=== PATIENT | male | born 1960 | race Caucasian/White ===

== ENCOUNTER 2018-11-23 18:23 | Inpatient (IN) | payer OTHER ==
[2018-11-23] MEDS ORDERED: THIAMINE 100 MG/ML 2 ML VIAL IM STA (18:48)
[2018-11-23] MEDS ORDERED: SODIUM CHLORIDE 0.9% 500 ML 500 ML IV STA (18:48)
[2018-11-23] MEDS ORDERED: DIAZEPAM 5 MG/ML 2 ML INJ IVP STA (18:48)
[2018-11-23] MEDS ORDERED: SODIUM CHLORIDE 0.9% 1,000 ML IV STA ×2 (18:48)
[2018-11-23] MEDS ORDERED: LORazepam 2 MG/ML INJ IV STA (18:48)
--- NOTE | 2018-11-23 19:07 | ED ---
Alcohol HPI - General Chief Complaint: Syncope Stated Complaint: Seizure Time Seen by Provider: 11/23/18 18:26 Source: patient, EMS, RN notes reviewed, old records reviewed Mode of arrival: EMS Limitations: no limitations - History of Present Illness Initial Comments: This is a 57-year-old male the ER for evaluation. Patient presents today for evaluation regards to seizure. Patient does admit to alcoholism. Patient has alcohol withdrawal seizure. Loss of bladder. Does have history of DTs before from alcoholism. MD Complaint: alcohol intoxication, alcohol withdrawal Last Drink: just [employer] (Seizure) -: days(s) Previous Visits for Alcohol Intoxication?: Yes Recent Trauma: No Associated Symptoms: nausea, seizure, diaphoresis, tremors Treatments Prior to Arrival: none Chronic Alcohol Use: Yes - Related Data Home Medications Medication Instructions Recorded Confirmed No Known Home Medications 11/23/18 11/23/18 Allergies Allergy/AdvReac Type Severity Reaction Status Date / Time No Known Allergies Allergy Verified 11/23/18 18:43 Review of Systems ROS Statement: Those systems with pertinent positive or pertinent negative responses have been documented in the HPI. ROS Other: All systems not noted in ROS Statement are negative. Past Medical History Additional Past Medical History / Comment(s): ETOH abuse History of Any Multi-Drug Resistant Organisms: None Reported Past Surgical History: Hernia Repair Past Psychological History: No Psychological Hx Reported Smoking Status: Current every day smoker Past Alcohol Use History: Abuse, Daily Past Drug Use History: None Reported General Exam Limitations: altered mental status General appearance: alert, anxious Head exam: Present: atraumatic, normocephalic, normal inspection Eye exam: Present: normal appearance, PERRL, EOMI. Absent: scleral icterus, conjunctival injection, periorbital swelling ENT exam: Present: normal exam, mucous membranes moist Neck exam: Present: normal inspection. Absent: tenderness, meningismus, lymphadenopathy Respiratory exam: Present: normal lung sounds bilaterally. Absent: respiratory distress, wheezes, rales, rhonchi, stridor Cardiovascular Exam: Present: normal rhythm, tachycardia, normal heart sounds. Absent: systolic murmur, diastolic murmur, rubs, gallop, clicks GI/Abdominal exam: Present: soft, normal bowel sounds. Absent: distended, tenderness, guarding, rebound, rigid Extremities exam: Present: normal inspection, full ROM, normal capillary refill. Absent: tenderness, pedal edema, joint swelling, calf tenderness Back exam: Present: normal inspection Neurological exam: Present: alert, oriented X3, CN II-XII intact Psychiatric exam: Present: normal affect, normal mood Skin exam: Present: warm, dry, intact, normal color. Absent: rash Course Vital Signs 11/23/18 11/23/18 18:32 19:25 Temperature 98.9 F Pulse Rate 104 H 82 Respiratory 18 19 Rate Blood Pressure 130/81 116/87 O2 Sat by Pulse 95 97 Oximetry - Reevaluation(s) Reevaluation #1: 11/23/18 20:26 Medical record is reviewed and noncontributory Reevaluation #2: 11/23/18 20:26 Patient is improved on benzodiazepines Medical Decision Making - Medical Decision Making 57 male the ER for evaluation. Patient is ER for evaluation, patient was seizure secondary to alcohol withdrawal. Patient will be admitted for monitoring of alcohol withdrawal, DTs and seizure - Lab Data Result diagrams: 11/23/18 18:30 11/23/18 18:30 Lab Results 11/23/18 11/23/18 11/23/18 Range/Units 18:30 18:30 18:30 WBC 8.9 (3.8-10.6) k/uL RBC 4.29 L (4.30-5.90) m/uL Hgb 14.8 (13.0-17.5) gm/dL Hct 44.9 (39.0-53.0) % MCV 104.6 H (80.0-100.0) fL MCH 34.4 (25.0-35.0) pg MCHC 32.9 (31.0-37.0) g/dL RDW 14.1 (11.5-15.5) % Plt Count 66 L (150-450) k/uL Neutrophils % 77 % Lymphocytes % 12 % Monocytes % 9 % Eosinophils % 1 % Basophils % 0 % Neutrophils # 6.8 (1.3-7.7) k/uL Lymphocytes # 1.0 (1.0-4.8) k/uL Monocytes # 0.8 (0-1.0) k/uL Eosinophils # 0.1 (0-0.7) k/uL Basophils # 0.0 (0-0.2) k/uL Manual Slide Review Performed Macrocytosis Slight PT 11.5 (9.0-12.0) sec INR 1.1 (<1.2) Sodium 139 (137-145) mmol/L Potassium 3.1 L (3.5-5.1) mmol/L Chloride 101 (98-107) mmol/L Carbon Dioxide 18 L (22-30) mmol/L Anion Gap 20 mmol/L BUN 15 (9-20) mg/dL Creatinine 0.98 (0.66-1.25) mg/dL Est GFR (CKD-EPI)AfAm >90 (>60 ml/min/1.73 sqM) Est GFR (CKD-EPI)NonAf 86 (>60 ml/min/1.73 sqM) Glucose 182 H (74-99) mg/dL Calcium 9.1 (8.4-10.2) mg/dL Phosphorus 2.7 (2.5-4.5) mg/dL Magnesium 1.5 L (1.6-2.3) mg/dL Total Bilirubin 3.2 H (0.2-1.3) mg/dL AST 226 H (17-59) U/L ALT 86 H (21-72) U/L Alkaline Phosphatase 124 (38-126) U/L Total Protein 6.4 (6.3-8.2) g/dL Albumin 3.9 (3.5-5.0) g/dL Lipase 88 (23-300) U/L Serum Alcohol <10 mg/dL - EKG Data -: EKG Interpreted by Me (EKG shows sinus tachycardia rate of 109, OK 152, QRS 82, QTc 495) Disposition Clinical Impression: Alcohol withdrawal, Delirium tremens, Seizure Disposition: ADMITTED IP TO THIS HOSP Condition: Fair Is patient prescribed a controlled substance at d/c from ED?: No Referrals: None,Stated [Primary Care Provider] - 1-2 days
[2018-11-23 19:11] LABS: Basophils % (A) 0 %; Eosinophils # (A) 0.1 k/uL (0-0.7); Eosinophils % (A) 1 %; HCT 44.9 % (39.0-53.0); HGB 14.8 gm/dL (13.0-17.5); Lymphocytes % (A) 12 %; MCH 34.4 pg (25.0-35.0); MCHC 32.9 g/dL (31.0-37.0); MCV 104.6 fL (80.0-100.0); Macrocytosis Slight; Monocytes # (A) 0.8 k/uL (0-1.0); Monocytes % (A) 9 %; Neutrophils # (A) 6.8 k/uL (1.3-7.7); Neutrophils % (A) 77 %; RBC 4.29 m/uL (4.30-5.90); RDW 14.1 % (11.5-15.5); WBC 8.9 k/uL (3.8-10.6)
[2018-11-23 19:18] LABS: INR 1.1 (<1.2); Prothrombin Time 11.5 sec (9.0-12.0)
[2018-11-23 19:31] LABS: ALT 86 U/L (21-72); Albumin 3.9 g/dL (3.5-5.0); Alcohol <10 mg/dL; Alkaline Phosphatase 124 U/L (38-126); Anion Gap 20 mmol/L; Blood Urea Nitrogen 15 mg/dL (9-20); Calcium 9.1 mg/dL (8.4-10.2); Carbon Dioxide 18 mmol/L (22-30); Chloride 101 mmol/L (98-107); Glucose 182 mg/dL (74-99); Lipase 88 U/L (23-300); Magnesium 1.5 mg/dL (1.6-2.3); Phosphorus 2.7 mg/dL (2.5-4.5); Potassium 3.1 mmol/L (3.5-5.1); Sodium 139 mmol/L (137-145); Total Bilirubin 3.2 mg/dL (0.2-1.3); Total Protein 6.4 g/dL (6.3-8.2)
[2018-11-23 19:46] LABS: Platelet Count 66 k/uL (150-450)
[2018-11-23] MEDS ORDERED: traMADol 50 MG TAB PO PRN (20:17)
[2018-11-23 20:30] LABS: AST 226 U/L (17-59)
--- NOTE | 2018-11-23 20:49 | HP ---
HISTORY AND PHYSICAL CHIEF COMPLAINT: Alcohol withdrawal. HISTORY OF PRESENT ILLNESS: This 57-year-old gentleman with a past medical history of significant alcoholism, history of hernia repair, history of nicotine dependence, not being followed by a primary physician in the outpatient setting, was living with his mother apparently. The family apparently took the patient to [facility] Emergency Room while the patient was withdrawing because of concerns about DTs. Currently the patient is confused, unable to give a coherent history. Most of the history is taken from my discussion with staff as well as review of the chart and discussion with the ER physician. PAST MEDICAL HISTORY: 1. ETOH abuse. 2. History of nicotine dependence. 3. History of hernia repair. HOME MEDICATIONS: None. ALLERGIES: NONE. Family history, social history, review of systems could not be taken at length. Otherwise, smoking and alcohol as mentioned earlier. PHYSICAL EXAMINATION: The patient is stuporous. Pulse 104, blood pressure 130/81, respiration 18, temperature 98.9, pulse ox 95% on room air. HEENT: Conjunctivae normal. Oral mucosa moist. NECK: No jugular venous distention. No carotid bruit. No lymph node enlargement. CARDIOVASCULAR SYSTEM: S1, S2 muffled. RESPIRATORY SYSTEM: Breath sounds diminished at the bases. Bilateral scattered rhonchi and crackles. ABDOMEN: Soft, non-tender. LEGS: No edema. No swelling. NERVOUS SYSTEM: Higher functions as mentioned earlier. Moves all 4 limbs. Mild diffuse weakness and tremors also present. LABS: WBC 8.9, hemoglobin 14.8. Sodium 139, potassium 3.1, magnesium 1.5. Total bilirubin is 3.2, AST is 2, ALT is 86. Alcohol less than 10. ASSESSMENT: 1. Acute delirium tremens with acute metabolic encephalopathy secondary to delirium tremens. 2. Alcohol withdrawal syndrome. 3. Hypomagnesemia. 4. Hypokalemia. 5. Increased bilirubin and AST, ALT, with alcoholic hepatitis. 6. Thrombocytopenia. 7. Increased mean corpuscular volume. 8. History of hernia repair. 9. History of nicotine dependence. RECOMMENDATIONS AND DISCUSSION: In this 57-year-old gentleman who presented with multiple complex medical issues, we will monitor the patient closely, continue the current management. Symptomatic treatment. [facility] protocol. Multivitamins. I would also recommend oncology social worker and case management evaluation for possible rehab. The prognosis is guarded because of multiple complex medical issues. See orders for further details. Further recommendations to follow. Will repeat potassium, magnesium supplementation and continue to monitor. Further recommendations to follow. Also recommend that the patient follow up with a primary physician closely after discharge. Discussed with the family, who understands and agrees. MELL / BRENDA: [id number] /
[2018-11-23] MEDS ORDERED: NICOTINE 14MG/24HR PATCH TRANSDERM STA (20:53)
[2018-11-23] MEDS ORDERED: HEPARIN SODIUM,PORCINE 5,000 UNIT/ML 1 ML VIAL SQ STA (20:54)
[2018-11-23] MEDS: MAGNESIUM SULFATE-D5W PMX 1 GM in DEXTROSE/WATER 1 100ML.BAG IVPB SCH (20:58)
[2018-11-23] MEDS ORDERED: TEMAZEPAM 15 MG CAP PO PRN (21:00)
[2018-11-23] MEDS: POTASSIUM CHLORIDE 10 MEQ in WATER FOR INJECTION 1 100ML.BAG IVPB SCH ×2 (22:18→23:37)
[2018-11-24] MEDS: POTASSIUM CHLORIDE 10 MEQ in WATER FOR INJECTION 1 100ML.BAG IVPB SCH ×3 (00:44→01:47)
[2018-11-24] MEDS: LORazepam 2 MG/ML INJ IV PRN ×10 (01:37→22:23)
[2018-11-24] MEDS: MAGNESIUM SULFATE-D5W PMX 1 GM in DEXTROSE/WATER 1 100ML.BAG IVPB SCH ×2 (02:41→23:13)
[2018-11-24 08:08] LABS: Basophils % (A) 0 %; Eosinophils # (A) 0.1 k/uL (0-0.7); Eosinophils % (A) 1 %; HCT 38.9 % (39.0-53.0); HGB 12.8 gm/dL (13.0-17.5); Lymphocytes # (A) 1.2 k/uL (1.0-4.8); Lymphocytes % (A) 15 %; MCH 34.4 pg (25.0-35.0); MCHC 32.8 g/dL (31.0-37.0); MCV 104.9 fL (80.0-100.0); Macrocytosis Slight; Mean Platelet Volume 8.7; Monocytes # (A) 0.8 k/uL (0-1.0); Monocytes % (A) 9 %; Neutrophils # (A) 5.9 k/uL (1.3-7.7); Neutrophils % (A) 73 %; RBC 3.71 m/uL (4.30-5.90); WBC 8.1 k/uL (3.8-10.6)
[2018-11-24 08:15] LABS: Platelet Count 55 k/uL (150-450)
[2018-11-24 08:18] LABS: Anion Gap 5 mmol/L; Blood Urea Nitrogen 10 mg/dL (9-20); Calcium 7.8 mg/dL (8.4-10.2); Carbon Dioxide 25 mmol/L (22-30); Chloride 106 mmol/L (98-107); Glucose 115 mg/dL (74-99); Magnesium 1.8 mg/dL (1.6-2.3); Potassium 3.3 mmol/L (3.5-5.1); Sodium 136 mmol/L (137-145)
[2018-11-24] MEDS: PANTOPRAZOLE 40 MG TABLET PO SCH (08:24)
[2018-11-24] MEDS: HEPARIN SODIUM,PORCINE 5,000 UNIT/ML 1 ML VIAL SQ SCH ×2 (08:24→22:19)
[2018-11-24] MEDS: THIAMINE 100 MG TAB PO SCH ×2 (12:24→17:07)
[2018-11-24] MEDS ORDERED: Potassium Replacement Protocol 1 EACH MISC MISCELLANE PRN ×3 (12:48→13:06)
[2018-11-24 12:56] LABS: Appearance,Urine Clear (Clear); Bilirubin,Urine Negative (Negative); Blood,Urine Negative (Negative); Color,Urine Yellow; Glucose,Urine (UA) Negative (Negative); Ketones,Urine Negative (Negative); Leukocyte Esterase,Urine Negative (Negative); Nitrite,Urine Negative (Negative); PH, Urine 7.5 (5.0-8.0); Protein,Urine Negative (Negative); Specific Gravity,Urine 1.007 (1.001-1.035)
[2018-11-24] MEDS ORDERED: Magnesium Replacement Protocol 1 EACH MISC MISCELLANE PRN (13:05)
[2018-11-24 13:15] LABS: Amphetamine Screen,Urine Not Detected (NotDetected); Barbiturate Screen,Urine Not Detected (NotDetected); Benzodiazepines Screen,Urine Detected (NotDetected); Cocaine Screen,Urine Not Detected (NotDetected); Methadone Screen, Urine Not Detected (NotDetected); Opiate Screen,Urine Not Detected (NotDetected); Oxycodone Screen, Urine Not Detected (NotDetected); Phencyclidine Screen,Urine Not Detected (NotDetected); Tricyclic Antidepressant,Urine Not Detected (NotDetected); Urn Cannabinoid Scrn Not Detected (NotDetected)
[2018-11-24] MEDS: POTASSIUM CHLORIDE ER 20 MEQ TAB.ER PO SCH ×2 (13:19→13:20)
--- NOTE | 2018-11-24 14:43 | PN ---
PROGRESS NOTE DATE OF SERVICE: 11/24/2018 This is a 57-year-old gentleman admitted with acute delirium tremens, alcohol withdrawn, is extremely shaky at this time. Patient continues to be confused. No chest pain. No palpitations. No fever. PHYSICAL EXAM: Alert and oriented x3. Pulse 71, blood pressure 140/84, respiration 20, temperature 98.2, pulse ox 97% on room air. HEENT: Conjunctivae normal. CARDIOVASCULAR SYSTEM: S1, S2, muffled. RESPIRATION: Breath sound diminished at the bases, a few scattered rhonchi. ABDOMEN: Soft. NERVOUS SYSTEM: Diffusely weak and tremors. LABS: WBC is 8.1, hemoglobin is 12.8, sodium 130, potassium 3.3 and magnesium 1.5. ASSESSMENT: 1. Acute delirium tremens with acute metabolic encephalopathy secondary to delirium tremens. 2. Alcohol withdrawal syndrome. 3. Hypomagnesemia. 4. Hypokalemia. 5. Increased bilirubin with AST, ALT with alcoholic hepatitis. 6. Thrombocytopenia. 7. Increased MCV. 8. History of hernia repair. 9. History nicotine dependence. RECOMMENDATION: Recommend to continue current management and symptomatic treatment. Continue with the CIWA protocol, Ativan. I would also recommend protocols, Mag and potassium also. Further recommendations to follow. MMODL / IJN: [id number] / MTDD
[2018-11-24] MEDS ORDERED: THIAMINE 100 MG TAB PO SCH (17:00)
[2018-11-24] MEDS: NICOTINE 14MG/24HR PATCH TRANSDERM SCH (18:29)
[2018-11-24] MEDS ORDERED: LORazepam 2 MG/ML INJ IV STA (19:05)
[2018-11-24] MEDS ORDERED: NICOTINE 14MG/24HR PATCH TRANSDERM SCH (21:00)
[2018-11-24 21:59] LABS: Glucose,Whole Blood 116 mg/dL (75-99)
[2018-11-24] MEDS ORDERED: LORazepam Vial 25 MG in DEXTROSE 5% IN WATER 238 ML IV SCH ×2 (22:45)
[2018-11-24] MEDS ORDERED: POTASSIUM CHLORIDE 10 MEQ in WATER FOR INJECTION 1 100ML.BAG IVPB SCH (23:00)
[2018-11-24] MEDS: SODIUM CHLORIDE 0.9% 1,000 ML IV SCH (23:12)
[2018-11-25] MEDS ORDERED: DIAZEPAM 5 MG/ML 2 ML INJ IVP STA (00:21)
[2018-11-25] MEDS: MAGNESIUM SULFATE-D5W PMX 1 GM in DEXTROSE/WATER 1 100ML.BAG IVPB SCH ×3 (00:24→06:30)
[2018-11-25] MEDS ORDERED: DIAZEPAM 5 MG/ML (10 ML MDV) IVP STA (00:25)
[2018-11-25] MEDS ORDERED: HALOPERIDOL LACTATE 5 MG/ML 1 ML VIAL IVP STA (01:03)
[2018-11-25 04:53] LABS: Basophils % (A) 0 %; Eosinophils # (A) 0.1 k/uL (0-0.7); Eosinophils % (A) 1 %; HGB 14.2 gm/dL (13.0-17.5); Lymphocytes # (A) 0.8 k/uL (1.0-4.8); Lymphocytes % (A) 10 %; MCHC 32.2 g/dL (31.0-37.0); MCV 105.6 fL (80.0-100.0); Macrocytosis Moderate; Mean Platelet Volume 9.4; Monocytes # (A) 0.7 k/uL (0-1.0); Monocytes % (A) 10 %; Neutrophils # (A) 5.9 k/uL (1.3-7.7); Neutrophils % (A) 78 %; RBC 4.17 m/uL (4.30-5.90); RDW 13.8 % (11.5-15.5); WBC 7.6 k/uL (3.8-10.6)
[2018-11-25 04:56] LABS: Platelet Count 53 k/uL (150-450)
[2018-11-25 05:03] LABS: ALT 108 U/L (21-72); AST 229 U/L (17-59); Albumin 3.4 g/dL (3.5-5.0); Alkaline Phosphatase 127 U/L (38-126); Anion Gap 8 mmol/L; Blood Urea Nitrogen 6 mg/dL (9-20); Calcium 8.5 mg/dL (8.4-10.2); Carbon Dioxide 26 mmol/L (22-30); Chloride 108 mmol/L (98-107); Glucose 94 mg/dL (74-99); Magnesium 1.9 mg/dL (1.6-2.3); Potassium 3.3 mmol/L (3.5-5.1); Sodium 142 mmol/L (137-145); Total Bilirubin 2.2 mg/dL (0.2-1.3)
[2018-11-25] MEDS: SODIUM CHLORIDE 0.9% 1,000 ML IV SCH (05:14)
[2018-11-25] MEDS: POTASSIUM CHLORIDE 10 MEQ in WATER FOR INJECTION 1 100ML.BAG IVPB SCH ×4 (05:42→09:08)
[2018-11-25] MEDS: LORazepam 2 MG/ML INJ IV PRN ×5 (09:08→21:16)
[2018-11-25] MEDS: DEXTROSE IV SCH ×6 (09:26→22:13)
[2018-11-25] MEDS: NACL IV SCH ×6 (09:26→22:13)
[2018-11-25] MEDS: THIAMINE IV SCH ×6 (09:26→22:13)
--- NOTE | 2018-11-25 10:39 | XR ---
EXAMINATION TYPE: XR chest 1V portable DATE OF EXAM: 11/25/2018 COMPARISON: NONE HISTORY: Pneumonia TECHNIQUE: Single frontal view of the chest is obtained. FINDINGS: Patient is rotated. There are cardiac leads. There is no focal air space opacity, pleural e ffusion, or pneumothorax seen. The cardiac silhouette size is within normal limits. The osseous st ructures are intact. IMPRESSION: No acute process.
[2018-11-25] MEDS: HALOPERIDOL LACTATE 5 MG/ML 1 ML VIAL IVP PRN ×2 (11:13→22:06)
--- NOTE | 2018-11-25 11:30 | CONS ---
CONSULTATION PULMONARY/CRITICAL CARE CONSULTATION. REASON FOR CONSULTATION: Alcohol withdrawal syndrome/delirium tremens/agitation. DATE OF SERVICE: November 25, 2018. HISTORY: This is a 57-year-old patient who was evaluated in the emergency room on November 23 for possible seizure disorder and/or alcohol withdrawal syndrome. The patient was thought to have alcohol withdrawal seizures. The patient apparently does have a history of delirium tremens in the past from alcohol intoxication. He drinks apparently a bottle of vodka a day. Anyway, the patient was thought to have had a seizure. No seizure while he has been here in the hospital as far as I can tell. Anyway, the patient was apparently on the floor, not responding to intermittent doses of Ativan via the CIWA scale. For that reason, the patient was transferred down to the unit. I was not notified of the transfer before the patient got here. I was notified after the patient arrived to the ICU. For some reason, someone started him on Ativan drip. This is not right for two reasons, one is the patient might have precipitation of the Ativan within the tubing. In addition, because the preservative Ativan is propylene glycol, propylene glycol intoxication with metabolic acidosis, lactic acidemia and osmolar gap is known to occur even in short term use of the IV Ativan via drip. Hence, the Ativan drip will be discontinued in favor of IV pushes of Ativan. In addition, Haldol will also be added to the regimen. The patient apparently also received some Valium and did not respond well to that. No additional history is documented in the medical record. HOME MEDICATIONS: Apparently none. ALLERGIES: None. PAST MEDICAL HISTORY: Only positive for alcohol abuse and possible alcoholic seizures in the past and/or delirium tremens in the past. PAST SURGICAL HISTORY: Hernia repair. SOCIAL HISTORY: Positive for current everyday tobacco use. Alcohol abuse as noted. No illicit drug use. Family and occupation history not known. The patient is not able to provide any additional history as he is quite agitated and confused. REVIEW OF SYSTEMS: Unremarkable. He may have had a seizure either prior to or in the ER. It is hard to note documentation. PHYSICAL EXAMINATION: Reviewed, temperature 98.4 heart rate respiratory rate 17, blood pressure 146/99, mean 114, room air saturation 94%. Appears quite agitated and confused. No active seizure activity. HEENT examination is grossly unremarkable. No supplemental oxygen noted. Neck is supple. Full range of motion. No adenopathy or thyromegaly. Neck veins are flat. Cardiovascular examination reveals regular rhythm and rate. Heart rate is anywhere between 80 to 105 beats per minute. S1, S2 normal. It is regular. No distinct murmur noted. Lungs reveal a few scattered rhonchi. No wheezes or crackles. Abdomen is soft. Bowel sounds are noted. Extremities are intact. No cyanosis, clubbing, or edema. Skin without rash. Neurologic examination is difficult to assess. He is very confused and disoriented. He is restrained. CURRENT LABORATORY DATA: Reviewed. White count 7.6, hemoglobin 14.2, hematocrit 44.0, platelet count 53,000. Sodium 142, potassium 3.3, chloride 108, CO2 is 26, anion gap is 8. BUN and creatinine were 6 and 0.57. Total bilirubin room is down to 2.2 from 3.2. AST is 229, ALT is 108. The alkaline phosphatases 127, albumin 3.4. Urine is clear. Drug screen is positive for benzodiazepines. No chest x-ray has been done. Will order one. EKG shows sinus tachycardia, no acute changes. MEDICATIONS: Reviewed. He is currently on D5 of 0.9 with thiamin at 150/hour. He is also getting Haldol and Ativan per my instructions. He has got a nicotine patch in place. He is getting potassium replacement. No additional medications are noted. ASSESSMENT: 1. Rule out alcoholic induced delirium tremens. 2. Rule out alcohol-induced seizures (rum fits). 3. History of chronic alcohol abuse. 4. History of chronic tobacco use/abuse. 5. Electrolyte service including hypokalemia. 6. Slight liver dysfunction secondary to alcohol abuse. PLAN: Ativan drip is discontinued because of concerns of precipitation of the medication and the tubing as well as propylene glycol intoxication. We will use Ativan IV push. Also, Haldol was added to the regimen. We will get a chest x-ray. Additional recommendations and suggestions forthcoming. We changed IV to D5 at 0.9 with thiamine. We will continue to follow. Prognosis is guarded. Should he develop temperature elevation, Tylenol will be used. We will follow. MMODL / IJN: [id number] /
[2018-11-25] MEDS ORDERED: LORazepam 2 MG/ML INJ IV PRN (12:00)
[2018-11-25] MEDS ORDERED: HALOPERIDOL LACTATE 5 MG/ML 1 ML VIAL IVP PRN (12:02)
[2018-11-25] MEDS: cloNIDine HCL 0.1 MG TAB SUBLINGUAL PRN ×2 (12:10→18:24)
--- NOTE | 2018-11-25 12:39 | PN ---
PROGRESS NOTE DATE OF SERVICE: 11/25/2018 This 57-year-old gentleman with a past medical history of multiple medical problems was admitted with acute delirium tremens. Last night, patient was combative, confused. The patient needed Ativan drip and transferred to ICU. Patient also necessitated restraints for patient safety as well as administration of medications. The patient is currently being maintained on anywhere between 2-5 mg Ativan p.r.n. and 4-8 mg of Haldol IV p.r.n. The patient is sedated but is moving his extremities minimally. Dr. Chavez is following the patient closely for ICU management. PAST MEDICAL HISTORY: Reviewed. REVIEW OF SYSTEMS: Could not be taken. CURRENT MEDICATIONS: The current medications are as follows: 1. Catapres 0.1 p.r.n. 2. Haldol p.r.n. 3. Ativan p.r.n. 4. Habitrol. 5. Saline. PHYSICAL EXAM: Patient is sedated, combative, restless. The pulse is 81, blood pressure 130/90, respiration 20, temperature 97 degrees, pulse ox 97% on room air. HEENT: Conjunctivae normal. NECK: No jugular venous distention. CARDIOVASCULAR: S1, S2. RESPIRATORY: Breath sounds diminished in the bases. No rhonchi. No crackles. ABDOMEN: Soft, nontender. No mass palpable. LEGS: No edema. NERVOUS SYSTEM: Patient is sedated. LABS: WBC 7.7 hemoglobin 14, platelets of 350. Sodium 140, potassium 3.3 and magnesium 1.9. Total bilirubin is 2.2, AST 229, and ALT is 108. positive drug screen. ASSESSMENT: 1. Acute delirium tremens with change in mental status acute metabolic encephalopathy. 2. Alcohol withdrawal syndrome. 3. Hypomagnesemia. 4. Hypokalemia. 5. Thrombocytopenia. 6. Increased bilirubin with AST, ALT with alcoholic hepatitis. 7. Increased MCV. 8. History of hernia repair. 9. History of nicotine dependence. RECOMMENDATIONS AND DISCUSSION: This 57-year-old gentleman who presented with multiple medical issues, at this time I recommend to continue current medications, continue symptomatic treatment. Continue with Ativan, Haldol as mentioned earlier. I would also recommend a clonidine and followup p.r.n. Repeat labs. DVT prophylaxis. Patient is not a candidate for heparin because of the severe thrombocytopenia which could be related to alcohol. We will continue to monitor. The prognosis guarded. Further recommendations to follow. Discussed with staff. MELL / CHIQUIN: [id number] / NIK
[2018-11-25] MEDS: 1: MVI, ADULT NO.4 WITH VIT K 10 ML, THIAMINE 100 MG, FOLIC ACID 1 MG in SODIUM CHLORIDE IV SCH ×8 (13:30→22:33)
[2018-11-25] MEDS: cloNIDine HCL 0.1 MG TAB PO SCH ×2 (16:35→22:28)
[2018-11-25] MEDS: NICOTINE 14MG/24HR PATCH TRANSDERM SCH (17:54)
[2018-11-26] MEDS: cloNIDine HCL 0.1 MG TAB SUBLINGUAL PRN (04:19)
[2018-11-26 05:33] LABS: Basophils % (A) 0 %; Eosinophils # (A) 0.1 k/uL (0-0.7); Eosinophils % (A) 2 %; HCT 42.3 % (39.0-53.0); HGB 13.4 gm/dL (13.0-17.5); Lymphocytes # (A) 0.6 k/uL (1.0-4.8); Lymphocytes % (A) 10 %; MCHC 31.6 g/dL (31.0-37.0); MCV 104.5 fL (80.0-100.0); Macrocytosis Slight; Mean Platelet Volume 9.7; Monocytes # (A) 0.7 k/uL (0-1.0); Monocytes % (A) 11 %; Neutrophils # (A) 4.6 k/uL (1.3-7.7); Neutrophils % (A) 75 %; RBC 4.05 m/uL (4.30-5.90); RDW 13.8 % (11.5-15.5); WBC 6.1 k/uL (3.8-10.6)
[2018-11-26 05:35] LABS: ALT 96 U/L (21-72); AST 162 U/L (17-59); Alkaline Phosphatase 108 U/L (38-126); Anion Gap 8 mmol/L; Blood Urea Nitrogen 4 mg/dL (9-20); Calcium 8.1 mg/dL (8.4-10.2); Carbon Dioxide 24 mmol/L (22-30); Chloride 110 mmol/L (98-107); Glucose 130 mg/dL (74-99); Magnesium 1.4 mg/dL (1.6-2.3); Platelet Count 63 k/uL (150-450); Potassium 3.4 mmol/L (3.5-5.1); Sodium 142 mmol/L (137-145); Total Bilirubin 1.8 mg/dL (0.2-1.3); Total Protein 5.6 g/dL (6.3-8.2)
[2018-11-26] MEDS: MAGNESIUM SULFATE-D5W PMX 1 GM in DEXTROSE/WATER 1 100ML.BAG IVPB SCH ×3 (06:15→10:13)
[2018-11-26] MEDS: NACL IV SCH ×6 (06:15→21:06)
[2018-11-26] MEDS: THIAMINE IV SCH ×6 (06:15→21:06)
[2018-11-26] MEDS: DEXTROSE IV SCH ×6 (06:15→21:06)
[2018-11-26] MEDS: cloNIDine HCL 0.1 MG TAB PO SCH ×3 (09:53→23:26)
[2018-11-26] MEDS: POTASSIUM CHLORIDE ER 20 MEQ TAB.ER PO SCH ×2 (09:53→12:09)
[2018-11-26] MEDS: 1: MVI, ADULT NO.4 WITH VIT K 10 ML, THIAMINE 100 MG, FOLIC ACID 1 MG in SODIUM CHLORIDE IV SCH ×8 (12:17→20:25)
--- NOTE | 2018-11-26 13:55 | P.CN ---
Psychiatric Consult - . Consult date: 11/26/18 Consult:: petition for alcoholism 11/26/18 13:49 Assessment and Plan Assessment: This is a 57-year-old male the ER for evaluation. Patient presents today for evaluation regards to seizure. Patient does admit to alcoholism. Patient has alcohol withdrawal seizure. Loss of bladder. Does have history of DTs before from alcoholism. Chronic Alcohol Use: Yes - Related Data Home Medications Medication Instructions Recorded Confirmed No Known Home Medications 11/23/18 11/23/18 Allergies Allergy/AdvReac Type Severity Reaction Status Date / Time No Known Allergies Allergy Verified 11/23/18 18:43 Past Medical History Additional Past Medical History / Comment(s): ETOH abuse History of Any Multi-Drug Resistant Organisms: None Reported Past Surgical History: Hernia Repair Past Psychological History: No Psychological Hx Reported Smoking Status: Current every day smoker Past Alcohol Use History: Abuse, Daily Past Drug Use History: None Reported mental status examination at time of interview 1300 hrs. 11/26/2018: This 57-year-old male who is a chronic alcoholic is in for detox. He is not arousable at this time. His daughter brought a petition for involuntary treatment in a psychiatric facility.the mental health code does not allow in individual such as family or others to file a petition for involuntary hospitalization in a psychiatric facility. It is not in the mental health code. No further psychiatric involvement is needed at this time. Thank you for the consult Zachary Hong D.O. PhD Time with Patient: Less than 30
--- NOTE | 2018-11-26 14:06 | P.PN ---
Subjective Progress Note Date: 11/26/18 Interval history: This is a 57-year-old gentleman admitted with alcohol intoxication, acute DTs, and multiple other medical issues. Currently in the ICU, off of Ativan drip. Cooperative.Sitter at bedside.Maintained on clonidine,CIWA protocol. Currently off of heparin secondary to severe thrombocytopenia. Magnesium 1.4, potassium 3.4. Review systems currently unable to take obtain as patient dozing off. Active Medications Clonidine (Catapres) 0.1 mg PO TID [facility] Last Admin: 11/26/18 09:53 Dose: 0.1 mg Documented by: Clonidine (Catapres) 0.1 mg SUBLINGUAL Q4H PRN PRN Reason: Blood Pressure - High Last Admin: 11/26/18 04:19 Dose: 0.1 mg Documented by: Haloperidol Lactate (Haldol) 4 - 8 mg IVP Q2H PRN PRN Reason: Agitation or Acute Psychosis Last Admin: 11/25/18 22:06 Dose: 6 mg Documented by: Haloperidol Lactate (Haldol) 1 mg IVP Q1H PRN PRN Reason: Agitation or Acute Psychosis Thiamine HCl 100 mg/ Dextrose/ (Sodium Chloride) 1,001 mls @ 150 mls/hr IV .Q6H41M [facility] Last Admin: 11/26/18 12:49 Dose: 150 mls/hr Documented by: Parenteral Vitamin Supplement 10 ml/ Thiamine HCl 100 mg/Folic Acid 1 mg/ Sodium Chloride 1,011.2 mls @ 100 mls/hr IV .BY DURATION [facility] Last Admin: 11/26/18 12:17 Dose: 100 mls/hr Documented by: Sodium Chloride (Saline 0.9%) 1,000 mls @ 100 mls/hr IV .BY DURATION [facility] Last Admin: 11/25/18 22:33 Dose: Not Given Documented by: Lorazepam (Ativan) 2 - 5 mg IV Q1HR PRN PRN Reason: CIWA 8 or higher Last Admin: 11/25/18 21:16 Dose: 3 mg Documented by: Lorazepam (Ativan) 1 mg IV Q1HR PRN PRN Reason: CIWA 8 or 9 Last Admin: 11/25/18 17:54 Dose: 1 mg Documented by: Miscellaneous Information (Magnesium Per Protocol) 1 each MISCELLANE DAILY PRN; Protocol PRN Reason: Per Protocol Miscellaneous Information (Potassium Per Protocol) 1 each MISCELLANE DAILY PRN; Protocol PRN Reason: Per Protocol Nicotine (Habitrol 14mg/24hr Patch) 1 patch TRANSDERM HS [facility] Last Admin: 11/25/18 17:54 Dose: 1 patch Documented by: Objective - Vital Signs Vital signs: Vital Signs Temp 97.5 F L 11/26/18 12:00 Pulse 56 L 11/26/18 13:00 Resp 18 11/26/18 13:00 BP 109/84 11/26/18 13:00 Pulse Ox 94 L 11/26/18 13:00 Intake & Output 11/25/18 11/26/18 11/26/18 18:59 06:59 18:59 Intake Total 2800 3391.2 1620 Output Total 250 400 335 Balance 2550 2991.2 1285 Weight 67.9 kg Intake: IV 2300 2200 1050 Dextrose 5%-0.9% NaCl 1, 1350 1800 1050 000 ml @ 150 mls/hr IV . Q6H41M HIREN with Thiamine 100 mg Rx#:[id number] Mvi, Adult No.4 with Vit 500 400 K 10 ml Thiamine 100 mg Folic Acid 1 mg In Sodium Chloride 0.9% 1,000 ml @ 100 mls/hr IV .BY DURATION [facility] Rx#: [id number] Sodium Chloride 0.9% 1, 450 000 ml @ 150 mls/hr IV . Q6H40M [facility] Rx#:[id number] Intake, IV Titration 400 1011.2 300 Amount Magnesium Sulfate-D5w Pmx 100 1 gm In Dextrose/Water 1 100ml.bag @ 100 mls/hr IVPB Q1H [facility] Rx#: [id number] Magnesium Sulfate-D5w Pmx 300 1 gm In Dextrose/Water 1 100ml.bag @ 100 mls/hr IVPB Q1H [facility] Rx#: [id number] Mvi, Adult No.4 with Vit 1011.2 K 10 ml Thiamine 100 mg Folic Acid 1 mg In Sodium Chloride 0.9% 1,000 ml @ 100 mls/hr IV .BY DURATION [facility] Rx#: [id number] Potassium Chloride 10 meq 300 In Water For Injection 1 100ml.bag @ 100 mls/hr IVPB Q1HR [facility] Rx#: [id number] Oral 100 180 270 Output: Urine 250 400 335 Other: Voiding Method Urinal Urinal # Voids 1 2 0 - Exam PHYSICAL EXAM: VITAL SIGNS: As above GENERAL: Sitting up in bed, dozing off, cooperative, noncombative,A& Ox3. HEENT: Conjunctivae normal. eyes normal. NECK: No JVD. No thyroid enlargement. No LNs CARDIOVASCULAR: S1, S2 muffled. No murmur RESPIRATION: Breath sounds diminished in the bases. No rhonchi or crackles. No bronchial breathing. ABDOMEN: Soft, nontender . No guarding. no masses palpable. No ascites, No hepatosplenomegaly.Bowel sounds heard. LEGS: No edema. no swelling PSYCHIATRY: Alert and oriented -3, mood and affect normal. NERVOUS SYSTEM: Cranial N 2-12 grossly normal. Moves all 4 limbs. Diffuse weakness No focal deficits. No sensory deficit. No signs of cerebellar dysfucntion. Skin: no ulcer no rash Joints: No active swelling. No inflammation. Lymphatic system. No LN neck axilla or groin. - Labs CBC & Chem 7: 11/26/18 04:18 11/26/18 04:18 Labs: Abnormal Lab Results - Last 24 Hours (Table) 11/26/18 11/26/18 Range/Units 04:18 04:18 RBC 4.05 L (4.30-5.90) m/uL MCV 104.5 H (80.0-100.0) fL Plt Count 63 L (150-450) k/uL Lymphocytes # 0.6 L (1.0-4.8) k/uL Potassium 3.4 L (3.5-5.1) mmol/L Chloride 110 H (98-107) mmol/L BUN 4 L (9-20) mg/dL Creatinine 0.52 L (0.66-1.25) mg/dL Glucose 130 H (74-99) mg/dL Calcium 8.1 L (8.4-10.2) mg/dL Magnesium 1.4 L (1.6-2.3) mg/dL Total Bilirubin 1.8 H (0.2-1.3) mg/dL AST 162 H (17-59) U/L ALT 96 H (21-72) U/L Total Protein 5.6 L (6.3-8.2) g/dL Albumin 3.0 L (3.5-5.0) g/dL Assessment and Plan Assessment: -Acute DTs acute change in mental status, acute metabolic encephalopathy -Alcohol withdrawal syndrome -Hypomagnesemia -Hypokalemia -Thrombocytopenia -Alcoholic hepatitis with elevated bilirubin and LFTs -Nicotine dependence Plan: Continue on current medication regime ,monitoring and symptomatic treatment.CIWa protocol, maintain clonidine. DVT prophylaxis with SCDs and thigh-high teds. Magnesium and potassium replacements in progress. Close monitoring of electrolytes,LFTs with repeat labs ordered for in the am. The impression and plan of care has been dictated as directed. : I performed a history and examination of this patient, discussed the same with the dictator. I agree with the dictator's note ,documented as a scribe. Any additional findings or plans will be noted.
--- NOTE | 2018-11-26 17:09 | P.PN ---
Subjective Progress Note Date: 11/26/18 I'm seeing this patient in the intensive care unit for delirium tremens. He is a 57-year-old male patient was been in ICU for the past 3 days. The patient is a alcoholic. Overnight the patient required a total of 90 mg of Ativan IV, 6 mg of IV Haldol and this morning the patient is much more comfortable awake and alert and following commands and answering questions appropriately. He is still a bit shaky however his mentation is improved considerably. No agitation. No delusions. No hallucinations. No further doses of the Ativan or Haldol was given to the patient had noted the patient drinks approximately a bottle of vodka every day. His white cell count is at 7.6. Platelet count is at 53 and is stable. The potassium is being replaced at 3.4. Liver functions are improving. No significant rest or distress. No cough sputum production chest that is so wheezing. He is moving all 4 extremities without any limitation. He is currently on IV fluids with D5 normal saline at the rate of 150 mL an hour. He is also on thiamine and multivitamins. No other significant events otherwise since this morning. There is associated at the bedside at all times. Objective - Vital Signs Vital signs: Vital Signs Temp 97.9 F 11/26/18 16:00 Pulse 55 L 11/26/18 16:00 Resp 22 11/26/18 16:00 BP 135/88 11/26/18 16:00 Pulse Ox 95 11/26/18 15:01 Intake & Output 11/25/18 11/26/18 11/26/18 18:59 06:59 18:59 Intake Total 2800 3391.2 2590 Output Total 250 400 335 Balance 2550 2991.2 2255 Weight 67.9 kg Intake: IV 2300 2200 1900 Dextrose 5%-0.9% NaCl 1, 1350 1800 1500 000 ml @ 150 mls/hr IV . Q6H41M [facility] with Thiamine 100 mg Rx#:[id number] [facility], Adult No.4 with Vit 500 400 400 K 10 ml Thiamine 100 mg Folic Acid 1 mg In Sodium Chloride 0.9% 1,000 ml @ 100 mls/hr IV .BY DURATION [facility] Rx#: [id number] Sodium Chloride 0.9% 1, 450 000 ml @ 150 mls/hr IV . Q6H40M [facility] Rx#:[id number] Intake, IV Titration 400 1011.2 300 Amount Magnesium Sulfate-D5w Pmx 100 1 gm In Dextrose/Water 1 100ml.bag @ 100 mls/hr IVPB Q1H [facility] Rx#: [id number] Magnesium Sulfate-D5w Pmx 300 1 gm In Dextrose/Water 1 100ml.bag @ 100 mls/hr IVPB Q1H [facility] Rx#: [id number] [facility], Adult No.4 with Vit 1011.2 K 10 ml Thiamine 100 mg Folic Acid 1 mg In Sodium Chloride 0.9% 1,000 ml @ 100 mls/hr IV .BY DURATION [facility] Rx#: [id number] Potassium Chloride 10 meq 300 In Water For Injection 1 100ml.bag @ 100 mls/hr IVPB Q1HR [facility] Rx#: [id number] Oral 100 180 390 Output: Urine 250 400 335 Other: Voiding Method Urinal Urinal Urinal # Voids 1 2 0 - Exam GENERAL: Sitting up in bed, calm, comfortable, some tremors are present. The patient is awake and alert and following commands and answering questions appropriately. HEENT: Conjunctivae normal. eyes normal. NECK: No JVD. No thyroid enlargement. No LNs CARDIOVASCULAR: S1, S2 muffled. No murmur, mCardiac exam revealed the PMI to be normally situated and sized. The rhythm was regular and no extrasystoles were noted during several minutes of auscultation. The first and second heart sounds were normal and physiologic splitting of the second heart sound was noted. There were no murmurs, rubs, clicks, or gallops. RESPIRATION: Breath sounds diminished in the bases. No rhonchi or crackles. No bronchial breathing.Lungs were clear to auscultation and percussion, and with normal diaphragmatic excursion. No wheezes or rales were noted. ABDOMEN: Soft, nontender . No guarding. no masses palpable. No ascites, No hepatosplenomegaly.Bowel sounds heard.Abdominal exam revealed normal bowel sounds. The abdomen was soft, non-tender, and without masses, organomegaly, or appreciable enlargement of the abdominal aorta. LEGS: No edema. no swelling Examination of the extremities revealed easily palpable radial, femoral and pedal pulses. There was no cyanosis, clubbing or edema. PSYCHIATRY: Alert and oriented -3, mood and affect normal. NERVOUS SYSTEM: Cranial N 2-12 grossly normal. Moves all 4 limbs. Diffuse weakness No focal deficits. No sensory deficit. No signs of cerebellar dysfucntion. Skin: no ulcer no rash Joints: No active swelling. No inflammation. Lymphatic system. No LN neck axilla or groin. - Labs CBC & Chem 7: 11/26/18 04:18 11/26/18 04:18 Labs: Abnormal Lab Results - Last 24 Hours (Table) 11/26/18 11/26/18 Range/Units 04:18 04:18 RBC 4.05 L (4.30-5.90) m/uL MCV 104.5 H (80.0-100.0) fL Plt Count 63 L (150-450) k/uL Lymphocytes # 0.6 L (1.0-4.8) k/uL Potassium 3.4 L (3.5-5.1) mmol/L Chloride 110 H (98-107) mmol/L BUN 4 L (9-20) mg/dL Creatinine 0.52 L (0.66-1.25) mg/dL Glucose 130 H (74-99) mg/dL Calcium 8.1 L (8.4-10.2) mg/dL Magnesium 1.4 L (1.6-2.3) mg/dL Total Bilirubin 1.8 H (0.2-1.3) mg/dL AST 162 H (17-59) U/L ALT 96 H (21-72) U/L Total Protein 5.6 L (6.3-8.2) g/dL Albumin 3.0 L (3.5-5.0) g/dL Assessment and Plan Plan: 1 delirium tremens with altered mentation, improved and the patient was treated with a combination of Haldol and Ativan. Significant amount of Haldol and Ativan was given overnight and since this morning the patient has been much more appropriate and alert without any focal neurological deficit, delusions or hallucinations. Psychiatric disorder patient patient is oriented and not a candidate for inpatient psychiatric unit and he was only binge drinking alcohol and there has been no intent for suicide. 2 chronic alcoholism 3 hypomagnesemia, replaced 4 hypokalemia replaced 5 chronic thrombocytopenia secondary to alcoholism 6 abnormal LFTs secondary to alcoholism, with improving enzymes 7 smoking Plan The patient is is doing well. The patient will be continued on IV fluids. We'll advance diet as tolerated. We'll watch for any signs of delirium tremens. Replace all of the electrolytes. The patient can be transferred to medical surgical floor for further monitoring and will continue to follow on an as needed basis. The input from the psychiatrist is appreciated.
[2018-11-26] MEDS: NICOTINE 14MG/24HR PATCH TRANSDERM SCH (18:54)
[2018-11-27] MEDS: NACL IV SCH ×4 (01:00→17:35)
[2018-11-27] MEDS: THIAMINE IV SCH ×4 (01:00→17:35)
[2018-11-27] MEDS: DEXTROSE IV SCH ×4 (01:00→17:35)
[2018-11-27 04:56] LABS: Basophils % (A) 0 %; Eosinophils # (A) 0.1 k/uL (0-0.7); Eosinophils % (A) 2 %; HCT 38.9 % (39.0-53.0); HGB 12.6 gm/dL (13.0-17.5); Lymphocytes # (A) 0.6 k/uL (1.0-4.8); Lymphocytes % (A) 8 %; MCH 34.9 pg (25.0-35.0); MCHC 32.3 g/dL (31.0-37.0); MCV 107.8 fL (80.0-100.0); Macrocytosis Moderate; Mean Platelet Volume 9.2; Monocytes # (A) 0.8 k/uL (0-1.0); Monocytes % (A) 12 %; Neutrophils # (A) 5.5 k/uL (1.3-7.7); Neutrophils % (A) 77 %; RBC 3.61 m/uL (4.30-5.90); RDW 14.1 % (11.5-15.5); WBC 7.2 k/uL (3.8-10.6)
[2018-11-27 05:01] LABS: Platelet Count 79 k/uL (150-450)
[2018-11-27 05:08] LABS: ALT 93 U/L (21-72); AST 125 U/L (17-59); Albumin 2.5 g/dL (3.5-5.0); Alkaline Phosphatase 115 U/L (38-126); Anion Gap 6 mmol/L; Blood Urea Nitrogen 6 mg/dL (9-20); Calcium 8.1 mg/dL (8.4-10.2); Carbon Dioxide 21 mmol/L (22-30); Chloride 111 mmol/L (98-107); Glucose 111 mg/dL (74-99); Magnesium 1.4 mg/dL (1.6-2.3); Phosphorus 2.9 mg/dL (2.5-4.5); Potassium 3.4 mmol/L (3.5-5.1); Sodium 138 mmol/L (137-145); Total Protein 4.9 g/dL (6.3-8.2)
[2018-11-27] MEDS: POTASSIUM CHLORIDE ER 20 MEQ TAB.ER PO SCH ×4 (06:08→20:47)
[2018-11-27] MEDS: MAGNESIUM SULFATE-D5W PMX 1 GM in DEXTROSE/WATER 1 100ML.BAG IVPB SCH ×3 (06:09→17:35)
[2018-11-27] MEDS: cloNIDine HCL 0.1 MG TAB PO SCH ×3 (08:48→20:47)
[2018-11-27] MEDS: THIAMINE 100 MG TAB PO SCH (12:24)
--- NOTE | 2018-11-27 13:14 | P.PN ---
Subjective Progress Note Date: 11/27/18 I'm seeing this patient in the intensive care unit for delirium tremens. He is a 57-year-old male patient was been in ICU for the past 3 days. The patient is a alcoholic. Overnight the patient required a total of 90 mg of Ativan IV, 6 mg of IV Haldol and this morning the patient is much more comfortable awake and alert and following commands and answering questions appropriately. He is still a bit shaky however his mentation is improved considerably. No agitation. No delusions. No hallucinations. No further doses of the Ativan or Haldol was given to the patient had noted the patient drinks approximately a bottle of vodka every day. His white cell count is at 7.6. Platelet count is at 53 and is stable. The potassium is being replaced at 3.4. Liver functions are improving. No significant rest or distress. No cough sputum production chest that is so wheezing. He is moving all 4 extremities without any limitation. He is currently on IV fluids with D5 normal saline at the rate of 150 mL an hour. He is also on thiamine and multivitamins. No other significant events otherwise since this morning. There is associated at the bedside at all times. on today's evaluation of 11/27/2018, the patient is fully awake and alert. Following commands and answering questions appropriately. No signs of any delirium tremens confusion and agitation or any other signs related to alcohol related delirium tremens. He has not received any further active and Haldol overnight. He is doing extremely well. He is hemodynamically stable. A bit study while walking. Is tolerating his diet. No aspiration. No focal logical deficits. Electrodes the severity placed including the low potassium and low magnesium level. No fever. No chills. The patient will be placed on oral thiamine, oral potassium and oral magnesium supplements. He is also on clonidine 0.1 mg 3 times a day for blood pressure control. Objective - Vital Signs Vital signs: Vital Signs Temp 97.5 F L 11/27/18 08:00 Pulse 56 L 11/27/18 11:00 Resp 25 H 11/27/18 12:00 BP 125/76 11/27/18 11:00 Pulse Ox 97 11/27/18 08:00 Intake & Output 11/26/18 11/27/18 11/27/18 18:59 06:59 18:59 Intake Total 3090 2250 900 Output Total 335 1380 725 Balance 2755 870 175 Weight 71.8 kg Intake: IV 2400 2250 0 Dextrose 5%-0.9% NaCl 1, 1800 1950 0 000 ml @ 150 mls/hr IV . Q6H41M [facility] with Thiamine 100 mg Rx#:[id number] [facility], Adult No.4 with Vit 600 300 0 K 10 ml Thiamine 100 mg Folic Acid 1 mg In Sodium Chloride 0.9% 1,000 ml @ 10 mls/hr IV .BY DURATION [facility] Rx#: [id number] Intake, IV Titration 300 100 Amount Magnesium Sulfate-D5w Pmx 300 1 gm In Dextrose/Water 1 100ml.bag @ 100 mls/hr IVPB Q1H [facility] Rx#: [id number] Magnesium Sulfate-D5w Pmx 100 1 gm In Dextrose/Water 1 100ml.bag @ 100 mls/hr IVPB Q1H [facility] Rx#: [id number] Oral 390 800 Output: Urine 335 1380 725 Other: Voiding Method Urinal Urinal # Voids 0 1 2 # Bowel Movements 1 - Exam GENERAL: Sitting up in bed, calm, comfortable, some tremors are present. The patient is awake and alert and following commands and answering questions appropriately. HEENT: Conjunctivae normal. eyes normal. NECK: No JVD. No thyroid enlargement. No LNs CARDIOVASCULAR: S1, S2 muffled. No murmur, mCardiac exam revealed the PMI to be normally situated and sized. The rhythm was regular and no extrasystoles were noted during several minutes of auscultation. The first and second heart sounds were normal and physiologic splitting of the second heart sound was noted. There were no murmurs, rubs, clicks, or gallops. RESPIRATION: Breath sounds diminished in the bases. No rhonchi or crackles. No bronchial breathing.Lungs were clear to auscultation and percussion, and with normal diaphragmatic excursion. No wheezes or rales were noted. ABDOMEN: Soft, nontender . No guarding. no masses palpable. No ascites, No hepatosplenomegaly.Bowel sounds heard.Abdominal exam revealed normal bowel sounds. The abdomen was soft, non-tender, and without masses, organomegaly, or appreciable enlargement of the abdominal aorta. LEGS: No edema. no swelling Examination of the extremities revealed easily palpable radial, femoral and pedal pulses. There was no cyanosis, clubbing or edema. PSYCHIATRY: Alert and oriented -3, mood and affect normal. NERVOUS SYSTEM: the patient is awake and alert and there is no focal neurological deficit.no confusion. Skin: no ulcer no rash Joints: No active swelling. No inflammation. Lymphatic system. No LN neck axilla or groin. - Labs CBC & Chem 7: 11/27/18 04:06 11/27/18 10:54 Labs: Abnormal Lab Results - Last 24 Hours (Table) 11/27/18 11/27/18 Range/Units 04:06 04:06 RBC 3.61 L (4.30-5.90) m/uL Hgb 12.6 L (13.0-17.5) gm/dL Hct 38.9 L (39.0-53.0) % MCV 107.8 H (80.0-100.0) fL Plt Count 79 L (150-450) k/uL Lymphocytes # 0.6 L (1.0-4.8) k/uL Potassium 3.4 L (3.5-5.1) mmol/L Chloride 111 H (98-107) mmol/L Carbon Dioxide 21 L (22-30) mmol/L BUN 6 L (9-20) mg/dL Creatinine 0.55 L (0.66-1.25) mg/dL Glucose 111 H (74-99) mg/dL Calcium 8.1 L (8.4-10.2) mg/dL Magnesium 1.4 L (1.6-2.3) mg/dL AST 125 H (17-59) U/L ALT 93 H (21-72) U/L Total Protein 4.9 L (6.3-8.2) g/dL Albumin 2.5 L (3.5-5.0) g/dL Assessment and Plan Plan: 1 delirium tremens with altered mentation, recovered and the patient has normalized his mental status. 2 chronic alcoholism 3 hypomagnesemia, replaced 4 hypokalemia replaced 5 chronic thrombocytopenia secondary to alcoholism 6 abnormal LFTs secondary to alcoholism, with improving enzymes 7 smoking Plan Advance diet. Advance activity. The patient came moved out of the intensive care unit. I think discharge is an issue knowing that the patient is homeless and his family is refusing to take him back home. He may need to go to a di fferent location including the possibility of a snf. We'll consult social studies department chair. We'll get him out of the ICU to a medical floor.
[2018-11-27] MEDS: cloNIDine HCL 0.1 MG TAB SUBLINGUAL PRN (15:51)
[2018-11-27] MEDS: 1: MVI, ADULT NO.4 WITH VIT K 10 ML, THIAMINE 100 MG, FOLIC ACID 1 MG in SODIUM CHLORIDE IV SCH ×4 (17:34)
[2018-11-27] MEDS: MAGNESIUM OXIDE 400 MG TAB PO SCH ×2 (17:35→20:47)
[2018-11-27] MEDS: PANTOPRAZOLE 40 MG TABLET PO SCH (17:38)
--- NOTE | 2018-11-27 17:55 | P.PN ---
Subjective Progress Note Date: 11/27/18 Interval history: This is a 57-year-old gentleman admitted with alcohol intoxication, acute DTs, and multiple other medical issues. Currently in the ICU, off of Ativan drip. Cooperative.Sitter at bedside.Maintained on clonidine,CIWA protocol. Currently off of heparin secondary to severe thrombocytopenia. Magnesium 1.4, potassium 3.4. 11/27/2018 today alert, sitting up at side of bed, conversing appropriately, cooperative. Did not require Haldol or Ativan throughout the night. No signs of DTs at this time. Good diet intake with no nausea or vomiting. Potassium and magnesium currently being replaced as per replacement protocols. Social work assisting with placement to either substance abuse treatment or homeless prison. Objective - Vital Signs Vital signs: Vital Signs Temp 97.5 F L 11/27/18 08:00 Pulse 71 11/27/18 08:00 Resp 23 11/27/18 08:00 BP 143/93 11/27/18 08:00 Pulse Ox 97 11/27/18 08:00 Intake & Output 11/26/18 11/27/18 11/27/18 18:59 06:59 18:59 Intake Total 3090 2250 350 Output Total 335 1380 725 Balance 2755 870 -375 Weight 71.8 kg Intake: IV 2400 2250 0 Dextrose 5%-0.9% NaCl 1, 1800 1950 0 000 ml @ 150 mls/hr IV . Q6H41M [facility] with Thiamine 100 mg Rx#:[id number] [facility], Adult No.4 with Vit 600 300 0 K 10 ml Thiamine 100 mg Folic Acid 1 mg In Sodium Chloride 0.9% 1,000 ml @ 10 mls/hr IV .BY DURATION [facility] Rx#: [id number] Intake, IV Titration 300 100 Amount Magnesium Sulfate-D5w Pmx 300 1 gm In Dextrose/Water 1 100ml.bag @ 100 mls/hr IVPB Q1H [facility] Rx#: [id number] Magnesium Sulfate-D5w Pmx 100 1 gm In Dextrose/Water 1 100ml.bag @ 100 mls/hr IVPB Q1H [facility] Rx#: [id number] Oral 390 250 Output: Urine 335 1380 725 Other: Voiding Method Urinal # Voids 0 1 1 # Bowel Movements 1 - Exam PHYSICAL EXAM: VITAL SIGNS: As above GENERAL: Sitting up at side of bed, conversing appropriately, cooperative, no agitation,A& Ox3. HEENT: Conjunctivae normal. eyes normal. Oral mucosa moist NECK: No JVD. No thyroid enlargement. No LNs CARDIOVASCULAR: S1, S2 muffled. No murmur RESPIRATION: Breath sounds diminished in the bases. No rhonchi or crackles. No bronchial breathing. ABDOMEN: Soft, nontender . No guarding. no masses palpable. No ascites, No hepatosplenomegaly.Bowel sounds heard. LEGS: No edema. no swelling NERVOUS SYSTEM: Cranial N 2-12 grossly normal. Moves all 4 limbs. Diffuse weakness No focal deficits. Skin: no ulcer no rash Joints: No active swelling. No inflammation. Lymphatic system. No LN neck axilla or groin. - Labs CBC & Chem 7: 11/27/18 04:06 11/27/18 10:54 Labs: Abnormal Lab Results - Last 24 Hours (Table) 11/27/18 11/27/18 Range/Units 04:06 04:06 RBC 3.61 L (4.30-5.90) m/uL Hgb 12.6 L (13.0-17.5) gm/dL Hct 38.9 L (39.0-53.0) % MCV 107.8 H (80.0-100.0) fL Plt Count 79 L (150-450) k/uL Lymphocytes # 0.6 L (1.0-4.8) k/uL Potassium 3.4 L (3.5-5.1) mmol/L Chloride 111 H (98-107) mmol/L Carbon Dioxide 21 L (22-30) mmol/L BUN 6 L (9-20) mg/dL Creatinine 0.55 L (0.66-1.25) mg/dL Glucose 111 H (74-99) mg/dL Calcium 8.1 L (8.4-10.2) mg/dL Magnesium 1.4 L (1.6-2.3) mg/dL AST 125 H (17-59) U/L ALT 93 H (21-72) U/L Total Protein 4.9 L (6.3-8.2) g/dL Albumin 2.5 L (3.5-5.0) g/dL Assessment and Plan Assessment: -Acute DTs acute change in mental status, acute metabolic encephalopathy -Alcohol withdrawal syndrome -Hypomagnesemia -Hypokalemia -Thrombocytopenia -Alcoholic hepatitis with elevated bilirubin and LFTs -Nicotine dependence Plan: Continue on current medication regime ,monitoring and symptomatic treatment.diet further advanced . Continue CIWa protocol, maintain clonidine. Magnesium and potassium replacements in progress. Close monitoring of reinaldo ctrolytes with repeat labs ordered for in the am. Cleared for discharge per management tech. Transfer to [facility].Social work assisting with placement to either substance abuse treatment or homeless prison. Discharge planning in progress for tomorrow. The impression and plan of care has been dictated as directed. : I performed a history and examination of this patient, discussed the same with the dictator. I agree with the dictator's note ,documented as a scribe. Any additional findings or plans will be noted.
[2018-11-27] MEDS: NICOTINE 14MG/24HR PATCH TRANSDERM SCH (20:47)
[2018-11-28] MEDS: 1: MVI, ADULT NO.4 WITH VIT K 10 ML, THIAMINE 100 MG, FOLIC ACID 1 MG in SODIUM CHLORIDE IV SCH ×8 (02:44→13:24)
[2018-11-28 07:56] VITALS: BP 156/91; PULSE 52; RESP 16; TEMP 97.2
[2018-11-28] MEDS: THIAMINE 100 MG TAB PO SCH (08:38)
[2018-11-28] MEDS: POTASSIUM CHLORIDE ER 20 MEQ TAB.ER PO SCH (08:38)
[2018-11-28] MEDS: MAGNESIUM OXIDE 400 MG TAB PO SCH (08:39)
[2018-11-28] MEDS: cloNIDine HCL 0.1 MG TAB PO SCH (08:39)
[2018-11-28 11:27] LABS: Basophils % (A) 0 %; Eosinophils # (A) 0.1 k/uL (0-0.7); Eosinophils % (A) 1 %; HCT 40.1 % (39.0-53.0); Lymphocytes # (A) 0.7 k/uL (1.0-4.8); Lymphocytes % (A) 9 %; MCH 34.4 pg (25.0-35.0); MCHC 32.4 g/dL (31.0-37.0); MCV 106.1 fL (80.0-100.0); Macrocytosis Moderate; Mean Platelet Volume 8.6; Monocytes # (A) 1.5 k/uL (0-1.0); Monocytes % (A) 18 %; Neutrophils # (A) 5.8 k/uL (1.3-7.7); Neutrophils % (A) 70 %; RBC 3.78 m/uL (4.30-5.90); RDW 14.2 % (11.5-15.5); WBC 8.2 k/uL (3.8-10.6)
[2018-11-28 11:41] LABS: Platelet Count 120 k/uL (150-450)
[2018-11-28 12:03] LABS: ALT 102 U/L (21-72); AST 130 U/L (17-59); Albumin 2.7 g/dL (3.5-5.0); Alkaline Phosphatase 117 U/L (38-126); Anion Gap 7 mmol/L; Blood Urea Nitrogen 11 mg/dL (9-20); Calcium 8.3 mg/dL (8.4-10.2); Carbon Dioxide 21 mmol/L (22-30); Chloride 110 mmol/L (98-107); Glucose 120 mg/dL (74-99); Potassium 3.6 mmol/L (3.5-5.1); Sodium 138 mmol/L (137-145); Total Bilirubin 1.1 mg/dL (0.2-1.3); Total Protein 5.1 g/dL (6.3-8.2)
--- NOTE | 2018-11-28 16:59 | P.DS ---
Providers Date of admission: 11/23/18 19:29 Expected date of discharge: 11/28/18 Attending physician: Darrick Ruiz Consults: 11/24/18 21:04 Consult Physician Urgent Consulting Provider: Matthew Chavez Consult Reason/Comments: icu placement Do you want consulting provider notified?: Yes 11/26/18 09:22 Consult Physician Routine Consulting Provider: Zachary Hong Consult Reason/Comments: petition from daughter for mental health Do you want consulting provider notified?: Yes Primary care physician: [facility] Course: Final Diagnoses: -Acute DTs acute change in mental status, acute metabolic encephalopathy, improved -Alcohol withdrawal syndrome -Hypomagnesemia -Hypokalemia -Thrombocytopenia -Alcoholic hepatitis with elevated bilirubin and LFTs -Nicotine dependence Hospital course:This is a 57-year-old gentleman admitted with alcohol intoxication, acute DTs, and multiple other medical issues. Currently in the ICU, off of Ativan drip. Cooperative.Sitter at bedside.Maintained on clonidine,CIWA protocol. Currently off of heparin secondary to severe thrombocytopenia. Magnesium 1.4, potassium 3.4. 11/27/2018 today alert, sitting up at side of bed, conversing appropriately, cooperative. Did not require Haldol or Ativan throughout the night. No signs of DTs at this time. Good diet intake with no nausea or vomiting. Potassium and magnesium currently being replaced as per replacement protocols. Social work assisting with placement to either substance abuse treatment or homeless [facility]. 11/28/2018 significant clinical improvement. Patient is being discharged today to daughter's house. Scheduled to go to [place] on 12/04/2018 as per [facility]/social work. Patient has been discharged home in a stable condition with guarded prognosis. EXAM: GENERAL: cooperative, no agitation,A& Ox3. No acute distress. CARDIOVASCULAR: S1, S2 muffled. No murmur RESPIRATION: Breath sounds diminished in the bases. No rhonchi or crackles. No bronchial breathing. ABDOMEN: Soft, nontender . Bowel sounds hear NERVOUS SYSTEM: No focal deficits. The impression and plan of care has been dictated as directed. : I performed a history and examination of this patient, discussed the same with the dictator. I agree with the dictator's note ,documented as a scribe. Any additional findings or plans will be noted. Time taken: 35 minutes Patient Condition at Discharge: Stable Plan - Discharge Summary Discharge Rx Participant: Yes New Discharge Prescriptions: New cloNIDine HCL [Catapres] 0.1 mg PO TID #90 tab Folic Acid 1 mg PO DAILY #30 tablet Nicotine 14Mg/24Hr Patch [Habitrol] 1 patch TRANSDERM HS #30 patch Potassium Chloride ER [K-Dur 20] 20 meq PO BID #30 tab.er.prt Magnesium Oxide [Mag-Ox] 400 mg PO BID #60 tab Multivitamins, Thera [Multivitamin (formulary)] 1 tab PO DAILY #30 tablet Thiamine [Vitamin B-1] 100 mg PO DAILY@1200 #30 tab Discharge Medication List Folic Acid 1 mg PO DAILY #30 tablet 11/28/18 [Rx] Magnesium Oxide [Mag-Ox] 400 mg PO BID #60 tab 11/28/18 [Rx] Multivitamins, Thera [Multivitamin (formulary)] 1 tab PO DAILY #30 tablet 11/28/18 [Rx] Nicotine 14Mg/24Hr Patch [Habitrol] 1 patch TRANSDERM HS #30 patch 11/28/18 [Rx] Potassium Chloride ER [K-Dur 20] 20 meq PO BID #30 tab.er.prt 11/28/18 [Rx] Thiamine [Vitamin B-1] 100 mg PO DAILY@1200 #30 tab 11/28/18 [Rx] cloNIDine HCL [Catapres] 0.1 mg PO TID #90 tab 11/28/18 [Rx] Follow up Appointment(s)/Referral(s): dr. ANAMIKA Psychiatry [Other] - 1 Week Jacob Jin Jr, DO [Primary Care Provider] - 3 Days (Pt states he prefers to make appointment. ) Ambulatory/Diagnostic Orders: Complete Blood Count w/diff [LAB.AMB] Time Frame: 3 Days, Location: None Selected Patient Instructions/Handouts: How to Stop Smoking (DC), Abuse of Alcohol (DC) Activity/Diet/Wound Care/Special Instructions: Regular diet. NO alcohol. Smoking cessation information provided. Activity as tolerated, fall precautions, up with assist. Admit to [facility] on 12-04 at 0945, daughter to transfer pt home with her until this time. Discharge Disposition: HOME SELF-CARE
== END 2018-11-28 15:13 | disposition home or self-care (01) | DRG 896 ==
LOC: EC 18:23 → 4SSUR 19:29 → 2SICU 11-24 21:51 → 4MS4W 11-27 17:29
PROVIDERS: ADMIT Hospitalist; ATTEND Hospitalist
DX: F10.229 Alcohol dependence with intoxication, unspecified (principal); G93.41 Metabolic encephalopathy; E87.2 Acidosis; F23 Brief psychotic disorder; F10.231 Alcohol dependence with withdrawal delirium; D69.6 Thrombocytopenia, unspecified; E83.42 Hypomagnesemia; E87.6 Hypokalemia; F17.210 Nicotine dependence, cigarettes, uncomplicated; K70.10 Alcoholic hepatitis without ascites; R56.9 Unspecified convulsions; Z78.1 Physical restraint status
CPT/HCPCS: 36415; 71045; 80048; 80053; 80306; 80320; 81003; 83690; 83735; 84100; 84132; 85025; 85610; 93005; 96361; 96365; 96372; 96375; 99285

== ENCOUNTER 2020-02-18 15:03 | Inpatient (IN) | payer OTHER ==
[2020-02-18] MEDS ORDERED: SODIUM CHLORIDE 0.9% 1,000 ML IV ONE (17:18)
[2020-02-18] MEDS ORDERED: LORazepam 2 MG/ML INJ IV STA (17:18)
[2020-02-18] MEDS ORDERED: SODIUM CHLORIDE 0.9% 1,000 ML with MVI, ADULT NO.4 WITH VIT K 10 ML, THIAMINE 100 MG, F... IV ONE ×4 (17:18)
[2020-02-18] MEDS ORDERED: THIAMINE 100 MG/ML 2 ML VIAL IM STA ×2 (17:26→19:26)
--- NOTE | 2020-02-18 17:34 | ED ---
Nausea/Vomiting/Diarrhea HPI - General Source: patient Mode of arrival: ambulatory Limitations: no limitations <Megan Koenig - Last Filed: 02/18/20 19:27> <Matthew Garcia - Last Filed: 02/18/20 20:07> - General Chief complaint: Nausea/Vomiting/Diarrhea Stated complaint: withdrawl Time Seen by Provider: 02/18/20 17:12 - History of Present Illness Initial comments: 59-year-old female patient presents to the emergency department today for evaluation of alcohol withdrawal. Patient states his last drink was Monday almost one week ago. States that he had several of days with shaking, nausea, and vomiting. Patient states he is unable to stop shaking. States he did start having hallucinations 3 days ago. States he is seeing people that aren't there. Having delusions about situations that are occurring at his mother states are not. Patient denies any headache, blurred vision, double vision. Denies any current nausea or vomiting. Denies abdominal pain. Patient states he has fallen a couple of times throughout the process and does have some mild left hip pain but is states it is improving. Denies taking any medication to help with his symptoms. Patient denies any recent rash, cough, shortness of breath, chest pain, diarrhea, constipation, back pain, numbness, tingling, dizziness, weakness, hematuria, dysuria, urinary urgency, urinary frequency, or any other complaints. (Megan Koenig) - Related Data Home Medications Medication Instructions Recorded Confirmed No Known Home Medications 02/18/20 02/18/20 Allergies Allergy/AdvReac Type Severity Reaction Status Date / Time No Known Allergies Allergy Verified 02/18/20 19:49 Review of Systems ROS Other: All systems not noted in ROS Statement are negative. <Megan Koenig - Last Filed: 02/18/20 19:27> ROS Other: All systems not noted in ROS Statement are negative. <Matthew Garcia - Last Filed: 02/18/20 20:07> ROS Statement: Those systems with pertinent positive or pertinent negative responses have been documented in the HPI. Past Medical History Past Medical History: Hypertension Additional Past Medical History / Comment(s): ETOH abuse. Dontates plasma 1-2 times per week History of Any Multi-Drug Resistant Organisms: None Reported Past Surgical History: Hernia Repair Past Psychological History: No Psychological Hx Reported Smoking Status: Current every day smoker Past Alcohol Use History: Abuse, Daily Past Drug Use History: None Reported - Past Family History Father Family Medical History: Prostate Disorder Additional Family Medical History / Comment(s): Alzheimer's Mother Additional Family Medical History / Comment(s): Pacemaker <González Koenigina Carlee - Last Filed: 02/18/20 19:27> General Exam Limitations: no limitations General appearance: alert, in no apparent distress, other (This is a well- developed, well-nourished adult male patient in no acute distress. Vital signs upon presentation are temperature 98.8F, pulse 70, respirations 18, blood pressure 138/78, pulse ox 99% on room air.) Eye exam: Present: normal appearance, PERRL, EOMI. Absent: scleral icterus, conjunctival injection, periorbital swelling ENT exam: Present: normal exam, normal oropharynx, mucous membranes moist Respiratory exam: Present: normal lung sounds bilaterally. Absent: respiratory distress, wheezes, rales, rhonchi, stridor Cardiovascular Exam: Present: regular rate, normal rhythm, normal heart sounds. Absent: systolic murmur, diastolic murmur, rubs, gallop, clicks GI/Abdominal exam: Present: soft, normal bowel sounds. Absent: distended, tenderness, guarding, rebound, rigid Neurological exam: Present: alert, oriented X3, CN II-XII intact, other (Tremors in the upper extremities) Psychiatric exam: Present: normal affect, normal mood, other (Reporting hallucinations.) Skin exam: Present: warm, dry, intact, normal color. Absent: rash <Megan Koenig Carlee - Last Filed: 02/18/20 19:27> Course <Matthew Garcia - Last Filed: 02/18/20 20:07> Vital Signs 02/18/20 02/18/20 02/18/20 15:58 17:49 19:50 Temperature 98.8 F 98.0 F Pulse Rate 70 72 70 Respiratory 18 18 18 Rate Blood Pressure 138/78 145/87 154/95 O2 Sat by Pulse 99 99 98 Oximetry - Reevaluation(s) Reevaluation #1: 02/18/20 20:07 [employer]LL OPERATOR for provision: I personally evaluate this case patient was sent with symptoms consistent with alcohol withdrawal. Patient be admitted. Case had been discussed with Dr. Barker. (Matthew Garcia) Medical Decision Making - Lab Data Result diagrams: 02/18/20 17:45 02/18/20 17:45 <Megan Koenig - Last Filed: 02/18/20 19:27> - Lab Data Result diagrams: 02/18/20 17:45 02/18/20 17:45 <Matthew Garcia - Last Filed: 02/18/20 20:07> - Lab Data Lab Results 02/18/20 02/18/20 Range/Units 17:45 17:45 WBC 8.5 (3.8-10.6) k/uL RBC 4.22 L (4.30-5.90) m/uL Hgb 14.2 (13.0-17.5) gm/dL Hct 42.4 (39.0-53.0) % MCV 100.5 H (80.0-100.0) fL MCH 33.7 (25.0-35.0) pg MCHC 33.6 (31.0-37.0) g/dL RDW 14.0 (11.5-15.5) % Plt Count 92 L (150-450) k/uL Neutrophils % 68 % Lymphocytes % 13 % Monocytes % 16 % Eosinophils % 1 % Basophils % 0 % Neutrophils # 5.8 (1.3-7.7) k/uL Lymphocytes # 1.1 (1.0-4.8) k/uL Monocytes # 1.3 H (0-1.0) k/uL Eosinophils # 0.1 (0-0.7) k/uL Basophils # 0.0 (0-0.2) k/uL Macrocytosis Slight Sodium 138 (137-145) mmol/L Potassium 2.7 L* (3.5-5.1) mmol/L Chloride 102 (98-107) mmol/L Carbon Dioxide 26 (22-30) mmol/L Anion Gap 10 mmol/L BUN 12 (9-20) mg/dL Creatinine 0.60 L (0.66-1.25) mg/dL Est GFR (CKD-EPI)AfAm >90 (>60 ml/min/1.73 sqM) Est GFR (CKD-EPI)NonAf >90 (>60 ml/min/1.73 sqM) Glucose 125 H (74-99) mg/dL Calcium 9.0 (8.4-10.2) mg/dL Phosphorus 3.4 (2.5-4.5) mg/dL Magnesium 1.5 L (1.6-2.3) mg/dL Total Bilirubin 1.8 H (0.2-1.3) mg/dL AST 89 H (17-59) U/L ALT 70 H (4-49) U/L Alkaline Phosphatase 107 (38-126) U/L Total Protein 7.3 (6.3-8.2) g/dL Albumin 4.3 (3.5-5.0) g/dL Serum Alcohol <10 mg/dL Disposition Decision to Admit Reason: Admit from EC Decision Date: 02/18/20 Decision Time: 19:27 <Megan Koenig - Last Filed: 02/18/20 19:27> <Matthew Garcia - Last Filed: 02/18/20 20:07> Clinical Impression: Alcohol withdrawal, Hallucinations, Hypokalemia, Hypomagnesemia Disposition: [facility] Condition: Serious Referrals: Jacob Jin Jr, [Primary Care Provider] - 1-2 days
--- NOTE | 2020-02-18 18:11 | XR ---
EXAMINATION TYPE: XR chest 2V DATE OF EXAM: 02/18/2020 COMPARISON: 11/25/2018 HISTORY: Pneumonia. Chest pain TECHNIQUE: FINDINGS: Heart is normal. Lungs are clear of infiltrate. There is no heart failure. Bony thorax is i ntact. IMPRESSION: Normal chest. No change.
[2020-02-18 18:14] LABS: Basophils % (A) 0 %; Eosinophils # (A) 0.1 k/uL (0-0.7); Eosinophils % (A) 1 %; HCT 42.4 % (39.0-53.0); HGB 14.2 gm/dL (13.0-17.5); Lymphocytes # (A) 1.1 k/uL (1.0-4.8); Lymphocytes % (A) 13 %; MCH 33.7 pg (25.0-35.0); MCHC 33.6 g/dL (31.0-37.0); MCV 100.5 fL (80.0-100.0); Macrocytosis Slight; Monocytes # (A) 1.3 k/uL (0-1.0); Monocytes % (A) 16 %; Neutrophils # (A) 5.8 k/uL (1.3-7.7); Neutrophils % (A) 68 %; RBC 4.22 m/uL (4.30-5.90); WBC 8.5 k/uL (3.8-10.6)
[2020-02-18 18:18] LABS: Platelet Count 92 k/uL (150-450)
[2020-02-18 18:24] LABS: ALT 70 U/L (4-49); AST 89 U/L (17-59); African American GFR (CKD) >90 (>60 ml/min/1.73 sqM); Albumin 4.3 g/dL (3.5-5.0); Alcohol <10 mg/dL; Alkaline Phosphatase 107 U/L (38-126); Anion Gap 10 mmol/L; Blood Urea Nitrogen 12 mg/dL (9-20); Carbon Dioxide 26 mmol/L (22-30); Chloride 102 mmol/L (98-107); Glucose 125 mg/dL (74-99); Magnesium 1.5 mg/dL (1.6-2.3); Non-African American GFR(CKD) >90 (>60 ml/min/1.73 sqM); Phosphorus 3.4 mg/dL (2.5-4.5); Sodium 138 mmol/L (137-145); Total Bilirubin 1.8 mg/dL (0.2-1.3); Total Protein 7.3 g/dL (6.3-8.2)
[2020-02-18 18:30] LABS: Potassium 2.7 mmol/L (3.5-5.1)
[2020-02-18] MEDS ORDERED: Potassium Replacement Protocol 1 EACH MISC MISCELLANE PRN (19:09)
[2020-02-18] MEDS ORDERED: ACETAMINOPHEN TAB 325 MG TAB PO PRN (19:24)
[2020-02-18] MEDS ORDERED: NALOXONE 0.4 MG/ML 1 ML VIAL IV PRN (19:24)
[2020-02-18] MEDS ORDERED: LORazepam 2 MG/ML INJ IV PRN ×2 (19:26)
[2020-02-18] MEDS: POTASSIUM CHLORIDE 10 MEQ in WATER FOR INJECTION 1 100ML.BAG IVPB SCH ×3 (19:48→22:45)
[2020-02-18] MEDS: MAGNESIUM SULFATE-D5W PMX 1 GM in DEXTROSE/WATER 1 100ML.BAG IVPB SCH ×2 (19:50→20:53)
[2020-02-19] MEDS: POTASSIUM CHLORIDE 10 MEQ in WATER FOR INJECTION 1 100ML.BAG IVPB SCH ×3 (00:29→04:05)
[2020-02-19] MEDS: LORazepam 2 MG/ML INJ IV PRN ×4 (00:34→18:01)
[2020-02-19 06:53] LABS: ALT 56 U/L (4-49); AST 71 U/L (17-59); African American GFR (CKD) >90 (>60 ml/min/1.73 sqM); Albumin 3.2 g/dL (3.5-5.0); Alkaline Phosphatase 93 U/L (38-126); Anion Gap 5 mmol/L; Blood Urea Nitrogen 11 mg/dL (9-20); Calcium 8.3 mg/dL (8.4-10.2); Carbon Dioxide 23 mmol/L (22-30); Chloride 110 mmol/L (98-107); Glucose 104 mg/dL (74-99); Magnesium 1.8 mg/dL (1.6-2.3); Non-African American GFR(CKD) >90 (>60 ml/min/1.73 sqM); Potassium 3.5 mmol/L (3.5-5.1); Sodium 138 mmol/L (137-145); Total Bilirubin 0.8 mg/dL (0.2-1.3)
[2020-02-19] MEDS: THIAMINE 100 MG TAB PO SCH ×2 (11:06→18:01)
[2020-02-19] MEDS ORDERED: Potassium Replacement Protocol 1 EACH MISC MISCELLANE PRN (11:37)
[2020-02-19] MEDS ORDERED: Magnesium Replacement Protocol 1 EACH MISC MISCELLANE PRN (11:52)
[2020-02-19] MEDS ORDERED: MULTIVITAMINS, THERA 1 EACH TAB PO SCH (12:30)
[2020-02-19] MEDS: FOLIC ACID 1 MG TAB PO SCH (12:44)
[2020-02-19] MEDS: POTASSIUM CHLORIDE ER 20 MEQ TAB.ER PO SCH ×2 (12:44→13:43)
[2020-02-19] MEDS: MAGNESIUM SULFATE-D5W PMX 1 GM in DEXTROSE/WATER 1 100ML.BAG IVPB SCH ×2 (12:45→13:43)
--- NOTE | 2020-02-19 13:09 | P.HPIM ---
History of Present Illness H&P Date: 02/19/20 Chief Complaint: Alcohol withdrawal This is a 59-year-old gentleman with history of alcoholism, drinks a large bottle of vodka every day, states he has been drinking since he was 23 years of age, donates plasma 1-2 times weekly , hypertension , ongoing nicotine dependence ,hernia repair, and multiple other medical issues. Reports he stopped drinking last Monday, developed shaking, nausea, vomiting, hallucinations, presented to the ER and active DTs. Mildly Elevated T bili, LFTs , with serum alcohol less than 10 .MCV 100.5, platelets 92 .chest x-ray normal chest, no change .potassium 2.7, magnesium 1.5. Receiving potassium and magnesium supplements with potassium up to 3.5 and magnesium up to 1.8. BUN 12, creatinine 0.6. Ammonia less than 9 Received IV fluid hydration including a banana bag, electrolyte supplements and placed on CIWA protocol. CIWA score currently at 6. Afebrile, normal WBC. Coronavirus, not detected. MCV 100.5, platelets 92 .Vital signs stable. Currently without agitation, sleepy with tremors upon awakening. Denies chest pain, palpitations or shortness of breath. Review of Systems Review systems currently unable to take obtain as patient dozing off. Past Medical History Past Medical History: Hypertension Additional Past Medical History / Comment(s): ETOH abuse. Dontates plasma 1-2 times per week History of Any Multi-Drug Resistant Organisms: None Reported Past Surgical History: Hernia Repair Past Anesthesia/Blood Transfusion Reactions: No Reported Reaction Past Psychological History: No Psychological Hx Reported Smoking Status: Current every day smoker Past Alcohol Use History: Abuse, Daily Additional Past Alcohol Use History / Comment(s): Patient reports he drinks a large bottle of vodka everyday. Patient reports his last drink was 1 week ago. Patient's daughters both report that he has had seizures in the past related to detox. symptoms Past Drug Use History: None Reported - Past Family History Father Family Medical History: Prostate Disorder Additional Family Medical History / Comment(s): Alzheimer's Mother Additional Family Medical History / Comment(s): Pacemaker Medications and Allergies Home Medications Medication Instructions Recorded Confirmed Type No Known Home Medications 02/18/20 02/18/20 History Allergies Allergy/AdvReac Type Severity Reaction Status Date / Time No Known Allergies Allergy Verified 02/18/20 19:49 Physical Exam Vitals: Vital Signs Temp Pulse Pulse Resp BP BP Pulse Ox 02/19/20 02:10 98.1 F 70 16 144/90 96 02/18/20 22:36 98.9 F 70 16 125/78 96 02/18/20 22:06 80 18 143/77 97 02/18/20 19:50 98.0 F 70 18 154/95 98 02/18/20 17:49 72 18 145/87 99 02/18/20 15:58 98.8 F 70 18 138/78 99 Intake and Output 02/18/20 02/19/20 02/19/20 22:59 06:59 14:59 Intake Total 400 Balance 400 Intake: Intake, IV Titration 400 Amount Sodium Chloride 0.9% 1, 400 000 ml @ 100 mls/hr IV . Q10H7M ONE with Mvi, Adult No.4 with Vit K 10 ml with Thiamine 100 mg with Folic Acid 1 mg Rx#: [id number] Other: # Voids 1 Weight 72.575 kg 72.575 kg PHYSICAL EXAM: VITAL SIGNS: As above GENERAL: Lying in bed, dozing off, cooperative, noncombative,A& Ox3. HEENT: Conjunctivae normal. eyes normal. NECK: No JVD. No thyroid enlargement. No LNs CARDIOVASCULAR: S1, S2 muffled. No murmur RESPIRATION: Breath sounds diminished in the bases. No rhonchi or crackles. No b ronchial breathing. ABDOMEN: Soft, nontender . No guarding. no masses palpable. No ascites, No hep atosplenomegaly.Bowel sounds heard. LEGS: No edema. no swelling PSYCHIATRY: Alert and oriented -3, mood and affect normal. NERVOUS SYSTEM: Cranial N 2-12 grossly normal. Moves all 4 limbs. No focal deficits. Skin: no rash Joints: No active swelling. No inflammation. Lymphatic system. No LN neck axilla. Results CBC & Chem 7: 02/18/20 17:45 02/19/20 05:47 Labs: Abnormal Lab Results - Last 24 Hours (Table) 02/18/20 02/18/20 02/19/20 Range/Units 17:45 17:45 05:47 RBC 4.22 L (4.30-5.90) m/uL MCV 100.5 H (80.0-100.0) fL Plt Count 92 L (150-450) k/uL Monocytes # 1.3 H (0-1.0) k/uL Potassium 2.7 L* (3.5-5.1) mmol/L Chloride 110 H (98-107) mmol/L Creatinine 0.60 L 0.56 L (0.66-1.25) mg/dL Glucose 125 H 104 H (74-99) mg/dL Calcium 8.3 L (8.4-10.2) mg/dL Magnesium 1.5 L (1.6-2.3) mg/dL Total Bilirubin 1.8 H (0.2-1.3) mg/dL AST 89 H 71 H (17-59) U/L ALT 70 H 56 H (4-49) U/L Total Protein 6.0 L (6.3-8.2) g/dL Albumin 3.2 L (3.5-5.0) g/dL Thrombosis Risk Factor Assmnt - Choose All That Apply Any of the Below Risk Factors Present?: Yes Each Factor Represents 1 point: Age 41-60 years Other Risk Factors: No Thrombosis Risk Factor Assessment Total Risk Factor Score: 1 Thrombosis Risk Factor Assessment Level: Low Risk Assessment and Plan Assessment: -Alcohol withdrawal syndrome with possible DTs, acute metabolic encephalopathy -Hypomagnesemia -Hypokalemia -Thrombocytopenia -Alcoholic hepatitis with elevated bilirubin and LFTs -Nicotine dependence Plan: Continue on current medication regime ,monitoring and symptomatic treatment.CIWA Protocol. IV fluid hydration including one banana bag daily with Multivitamins. Electrolyte replacements. Home meds have been reviewed and resumed. Close monitoring of LFTs, electrolytes, coags, with repeat labs ordered for a.m. social work consulted to provide rehab resources/options. The impression and plan of care has been dictated as directed. : I performed a history and examination of this patient, discussed the same with the dictator. I agree with the dictator's note ,documented as a scribe. Any additional findings or plans will be noted.
[2020-02-19] MEDS: PANTOPRAZOLE 40 MG/10 ML VIAL IVP SCH (13:42)
[2020-02-20 07:31] VITALS: BP 168/94; PULSE 66; TEMP 98
[2020-02-20 07:40] LABS: Basophils % (A) 0 %; Eosinophils # (A) 0.1 k/uL (0-0.7); Eosinophils % (A) 1 %; HCT 39.5 % (39.0-53.0); Lymphocytes % (A) 13 %; MCH 33.9 pg (25.0-35.0); MCHC 32.9 g/dL (31.0-37.0); MCV 103.1 fL (80.0-100.0); Macrocytosis Slight; Monocytes # (A) 1.2 k/uL (0-1.0); Monocytes % (A) 15 %; Neutrophils # (A) 5.1 k/uL (1.3-7.7); Neutrophils % (A) 67 %; Platelet Count 108 k/uL (150-450); RBC 3.83 m/uL (4.30-5.90); WBC 7.7 k/uL (3.8-10.6)
[2020-02-20 07:48] LABS: ALT 58 U/L (4-49); AST 60 U/L (17-59); African American GFR (CKD) >90 (>60 ml/min/1.73 sqM); Albumin 3.2 g/dL (3.5-5.0); Alkaline Phosphatase 79 U/L (38-126); Anion Gap 5 mmol/L; Blood Urea Nitrogen 11 mg/dL (9-20); Calcium 8.3 mg/dL (8.4-10.2); Carbon Dioxide 24 mmol/L (22-30); Chloride 109 mmol/L (98-107); Glucose 112 mg/dL (74-99); Magnesium 1.5 mg/dL (1.6-2.3); Non-African American GFR(CKD) >90 (>60 ml/min/1.73 sqM); Potassium 3.7 mmol/L (3.5-5.1); Sodium 138 mmol/L (137-145); Total Bilirubin 0.7 mg/dL (0.2-1.3); Total Protein 6.1 g/dL (6.3-8.2)
[2020-02-20] MEDS: PANTOPRAZOLE 40 MG/10 ML VIAL IVP SCH (07:58)
[2020-02-20] MEDS: THIAMINE 100 MG TAB PO SCH (07:58)
[2020-02-20 09:37] VITALS: RESP 18
[2020-02-20] MEDS: FOLIC ACID 1 MG TAB PO SCH (12:12)
--- NOTE | 2020-02-20 12:35 | P.DS ---
Providers Date of admission: 02/18/20 19:59 Expected date of discharge: 02/20/20 Attending physician: Jovanny Barker Primary care physician: [facility] Course: Final Diagnoses: -Alcohol withdrawal syndrome with possible DTs, acute metabolic encephalopathy -Hypomagnesemia -Hypokalemia -Thrombocytopenia -Alcoholic hepatitis with elevated bilirubin and LFTs -Nicotine dependence Hospital course:This is a 59-year-old gentleman with history of alcoholism, drinks a large bottle of vodka every day, states he has been drinking since he was 23 years of age, donates plasma 1-2 times weekly , hypertension , ongoing nicotine dependence ,hernia repair, and multiple other medical issues. Reports he stopped drinking last Monday, developed shaking, nausea, vomiting, hallucinations, presented to the ER and active DTs. Mildly Elevated T bili, LFTs , with serum alcohol less than 10 .MCV 100.5, platelets 92 .chest x-ray normal chest, no change .potassium 2.7, magnesium 1.5. Receiving potassium and magnesium supplements with potassium up to 3.5 and magnesium up to 1.8. BUN 12, creatinine 0.6. Ammonia less than 9 Received IV fluid hydration including a banana bag, electrolyte supplements and placed on CIWA protocol. CIWA score currently at 6. Afebrile, normal WBC. Coronavirus, not detected. MCV 100.5, platelets 92 .Vital signs stable. Currently without agitation, sleepy with tremors upon awakening. Denies chest pain, palpitations or shortness of breath. Maintained on IV fluid hydration, vitamins, CIWA protocol, electrolyte replacement, with significant clinical improvement. Patient will be discharged home today pending electrolytes supplementation, meeting with social sciences chair regarding rehab options/resources, in a stable condition with guarded prognosis. The impression and plan of care has been dictated as directed. : I performed a history and examination of this patient, discussed the same with the dictator. I agree with the dictator's note ,documented as a scribe. Any additional findings or plans will be noted. Patient Condition at Discharge: Stable Plan - Discharge Summary Discharge Rx Participant: Yes New Discharge Prescriptions: New Folic Acid 1 mg PO AC-LUNCH #30 tab Multivitamins, Thera [Multivitamin (formulary)] 1 tab PO AC-LUNCH #30 tablet Pantoprazole Sodium [Protonix] 40 mg PO DAILY #30 tablet. Thiamine [Vitamin B-1] 100 mg PO AC-LUNCH #30 tab Discharge Medication List Folic Acid 1 mg PO AC-LUNCH #30 tab 02/20/20 [Rx] Multivitamins, Thera [Multivitamin (formulary)] 1 tab PO AC-LUNCH #30 tablet 02/20/20 [Rx] Pantoprazole Sodium [Protonix] 40 mg PO DAILY #30 tablet. 02/20/20 [Rx] Thiamine [Vitamin B-1] 100 mg PO AC-LUNCH #30 tab 02/20/20 [Rx] Follow up Appointment(s)/Referral(s): Jacob Jin Jr, DO [Primary Care Provider] - 3 Days Activity/Diet/Wound Care/Special Instructions: Pending social work consult with recommendations for rehab. Pending magnesium and potassium supplementation No alcohol
--- NOTE | 2020-02-21 13:02 | CDI ---
Documentation Clarification Form Date: 02/21/20 From: Barb Shahid CCS Phone: If you have a question about this query, please contact Elizabeth Flor, Slot Floor Attendant at [phone] between 8am and 5pm. Admit Date: 02/18/20 Discharge Date: 02/20/20 Patient Name: Robin Rogers Visit Number: [id number] ATTENTION: The Clinical Documentation Specialists (CDI) and [facility] Coding Staff appreciate your assistance in clarifying documentation. Please respond to the clarification below the line at the bottom and electronically sign. The CDI & [facility] Coding staff will review the response and follow-up if needed. Please note: Queries are made part of the Legal Health Record. If you have any questions, please contact the author of this message via ITS. Dear Dr. Barker, Your patient has the documented diagnosis of alcohol withdrawal with possible DTs and metabolic encephalopathy in your H&P and DS. A relationship between diagnoses cannot be assumed unless documented as such by the attending physician. In order to capture the severity of condition; please document the relationship, if any, between these diagnoses. History/Risk Factors: Alcohol dependence, Alcoholic hepatitis, HTN, Tobacco Clinical Indicators: Hallucinations Kate Coma Scale: Eye Response-opens spontaneously, Motor response-obeys commands, Verbal response- oriented Treatment: Narcan 0.2 mg IV Q2M PRN, Thiamin 100 mg IM. Ativan 1 mg IV Q1HR PRN Please clarify and document your clinical opinion if any relationship (due to, caused by, secondary to) exists between these two diagnoses. Metabolic encephalopathy due to alcohol dependence Metabolic encephalopathy due to Other explanation of clinical findings (please specify) ALcohol withdrawl Unable to determine (no explanation for clinical findings) MTDD
== END 2020-02-20 14:42 | disposition home or self-care (01) | DRG 897 ==
LOC: EC 15:03 → 5NMEDONC 19:59 → 4SSUR 02-19 02:09
PROVIDERS: ADMIT Family Medicine; ATTEND Family Medicine
DX: F10.231 Alcohol dependence with withdrawal delirium (principal); R44.3 Hallucinations, unspecified; D69.6 Thrombocytopenia, unspecified; G31.2 Degeneration of nervous system due to alcohol; K70.10 Alcoholic hepatitis without ascites; Z11.59 Encounter for screening for other viral diseases; M25.552 Pain in left hip; I10 Essential (primary) hypertension; F17.200 Nicotine dependence, unspecified, uncomplicated; E87.6 Hypokalemia; E83.42 Hypomagnesemia; Y90.0 Blood alcohol level of less than 20 mg/100 ml; W19.XXXA Unspecified fall, initial encounter; Z82.0 Family history of epilepsy and other diseases of the nervous system; Z98.890 Other specified postprocedural states
CPT/HCPCS: 36415; 71046; 80053; 80320; 82140; 83735; 84100; 84132; 85025; 96365; 96366; 96368; 96372; 96375; 96376; 99285

== ENCOUNTER → 2021-05-11 | Outpatient (CLI) | payer OTHER ==
[2021-05-11 15:47] LABS: Basophils # (A) 0.04 X 10*3/uL (0.00-0.10); Basophils % (A) 0.5 %; Eosinophils # (A) 0.09 X 10*3/uL (0.04-0.35); HGB 14.3 g/dL (13.0-17.0); Lymphocytes # (A) 1.65 X 10*3/uL (0.90-5.00); Lymphocytes % (A) 18.7 %; MCH 33.6 pg (27.0-32.0); MCHC 32.5 g/dL (32.0-37.0); MCV 103.5 fL (80.0-97.0); Mean Platelet Volume 11.9 fL (9.5-12.2); Monocytes # (A) 1.33 X 10*3/uL (0.20-1.00); Monocytes % (A) 15.1 %; Neutrophils # (A) 5.68 X 10*3/uL (1.80-7.70); Neutrophils % (A) 64.5 %; Platelet Count 188 X 10*3/uL (140-440); RBC 4.25 X 10*6/uL (4.40-5.60); RDW 12.5 % (11.5-14.5); WBC 8.81 X 10*3/uL (4.50-10.00)
[2021-05-11 22:39] LABS: African American GFR (CKD) 112.5 (60.0-200.0); Albumin 4.4 g/dL (3.80-4.90); Albumin/Globulin Ratio 1.57 (1.60-3.17); Anion Gap 9.4 mmol/L (4.00-12.00); BUN/Creat Ratio 18.75 Ratio (12.00-20.00); Calcium 9.7 mg/dL (8.7-10.3); Carbon Dioxide 20.6 mmol/L (21.6-31.8); Chol/HDL Ratio 3.91; Globulin 2.8 g/dL (1.6-3.3); LDL Cholesterol,Calculated 103.2 mg/dL (0.0-131.0); Magnesium 1.8 mg/dL (1.5-2.4); Non-African American GFR(CKD) 97.1 (60.0-200.0); Potassium 4.9 mmol/L (3.5-5.5); Total Bilirubin 0.7 mg/dL (0.2-1.2); Total Protein 7.2 g/dL (6.2-8.2); VLDL Calculation 21.8 mg/dL (5.00-40.00)
[2021-05-11 22:48] LABS: Folate, Serum 8.4 ng/mL
[2021-05-11 22:50] LABS: T4, Free (Free Thyroxine) 0.8 ng/dL (0.80-1.80)
== END | disposition home or self-care (01) ==
LOC: LABWHC1 08:59
PROVIDERS: ATTEND Nurse Practitioner Family
DX: F10.20 Alcohol dependence, uncomplicated (principal); E55.9 Vitamin D deficiency, unspecified; Z68.22 Body mass index [BMI] 22.0-22.9, adult
CPT/HCPCS: 36415; 80053; 80061; 82150; 82306; 82607; 82746; 83690; 83735; 84207; 84425; 84439; 84443; 85025; 86803

== ENCOUNTER 2023-07-11 19:14 | Emergency (ER) | payer OTHER ==
[2023-07-11 19:26] VITALS: BP 176/77; PULSE 77; RESP 20; TEMP 98.2
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
[2023-07-11 20:29] LABS: Basophils % (A) 0 %; Eosinophils # (A) 0.1 k/uL (0-0.7); Eosinophils % (A) 1 %; HCT 42.4 % (39.0-53.0); HGB 14.3 gm/dL (13.0-17.5); Lymphocytes # (A) 1.5 k/uL (1.0-4.8); Lymphocytes % (A) 28 %; MCH 33.8 pg (25.0-35.0); MCHC 33.7 g/dL (31.0-37.0); MCV 100.5 fL (80.0-100.0); Macrocytosis Slight; Mean Platelet Volume 8.1; Monocytes # (A) 0.6 k/uL (0-1.0); Monocytes % (A) 11 %; Neutrophils # (A) 3.1 k/uL (1.3-7.7); Neutrophils % (A) 57 %; Platelet Count 222 k/uL (150-450); RBC 4.22 m/uL (4.30-5.90); RDW 14.2 % (11.5-15.5); WBC 5.3 k/uL (3.8-10.6)
[2023-07-11 20:43] LABS: ALT 78 U/L (4-49); AST 103 U/L (17-59); African American GFR (CKD) >90 (>60 ml/min/1.73 sqM); Albumin 4.2 g/dL (3.5-5.0); Alkaline Phosphatase 111 U/L (38-126); Anion Gap 12 mmol/L; Blood Urea Nitrogen 10 mg/dL (9-20); Calcium 9.2 mg/dL (8.4-10.2); Carbon Dioxide 22 mmol/L (22-30); Chloride 116 mmol/L (98-107); Glucose 98 mg/dL (74-99); Non-African American GFR(CKD) >90 (>60 ml/min/1.73 sqM); Potassium 4.2 mmol/L (3.5-5.1); Sodium 150 mmol/L (137-145); Total Bilirubin 0.5 mg/dL (0.2-1.3); Total Protein 7.3 g/dL (6.3-8.2)
[2023-07-11 21:03] LABS: Partial Thromboplastin Time 24.7 sec (22.0-30.0); Prothrombin Time 10.8 sec (10.0-12.5)
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
[2023-07-11 21:08] LABS: Alcohol 343 mg/dL
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
== END 2023-07-11 23:26 | disposition home or self-care (01) ==
LOC: EC 19:14
DX: F10.129 Alcohol abuse with intoxication, unspecified (principal); I10 Essential (primary) hypertension; F17.200 Nicotine dependence, unspecified, uncomplicated; Y90.8 Blood alcohol level of 240 mg/100 ml or more; Z99.2 Dependence on renal dialysis; Z79.899 Other long term (current) drug therapy; V49.40XA Driver injured in collision with unspecified motor vehicles in traffic accident, initial encounter
CPT/HCPCS: 93005; 86900; 86901; 80053; 85025; 85610; 85730; 86850; 80320; 72170; 71045; 72125; 70450; 71260; 74177; 99285; Q9967; 36415

== ENCOUNTER 2024-11-07 10:17 | Observation (INO) | payer OTHER ==
[2024-11-07] MEDS: SODIUM CHLORIDE 0.9% 1,000 ML IV STA (10:39)
[2024-11-07] MEDS: MAGNESIUM SULFATE-D5W PMX 1 GM in DEXTROSE/WATER 1 100ML.BAG IVPB STA (10:39)
[2024-11-07] MEDS: ASPIRIN 81 MG PO STA (10:45)
[2024-11-07 10:49] LABS: Basophils % (A) 0 %; Eosinophils # (A) 0.1 k/uL (0-0.7); Eosinophils % (A) 1 %; HCT 47.5 % (39.0-53.0); HGB 15.3 gm/dL (13.0-17.5); Lymphocytes # (A) 1.1 k/uL (1.0-4.8); Lymphocytes % (A) 10 %; MCH 30.9 pg (25.0-35.0); MCHC 32.1 g/dL (31.0-37.0); MCV 96.2 fL (80.0-100.0); Mean Platelet Volume 7.2; Monocytes # (A) 0.9 k/uL (0-1.0); Monocytes % (A) 8 %; Neutrophils # (A) 9.1 k/uL (1.3-7.7); Neutrophils % (A) 81 %; Platelet Count 185 k/uL (150-450); RBC 4.94 m/uL (4.30-5.90); WBC 11.2 k/uL (3.8-10.6)
[2024-11-07] MEDS: DEXTROSE 5% IN WATER 100 ML with AMIODARONE 150 MG IV ONE (10:51)
[2024-11-07 10:57] LABS: ALT 42 U/L (4-49); AST 75 U/L (17-59); African American GFR (CKD) >90 (>60 ml/min/1.73 sqM); Albumin 4.6 g/dL (3.5-5.0); Alcohol 78 mg/dL; Alkaline Phosphatase 154 U/L (38-126); Anion Gap 14 mmol/L; Blood Urea Nitrogen 8 mg/dL (9-20); Calcium 9.3 mg/dL (8.4-10.2); Carbon Dioxide 21 mmol/L (22-30); Chloride 106 mmol/L (98-107); Glucose 121 mg/dL (74-99); Magnesium 1.7 mg/dL (1.6-2.3); Non-African American GFR(CKD) >90 (>60 ml/min/1.73 sqM); Sodium 141 mmol/L (137-145); Total Bilirubin 0.9 mg/dL (0.2-1.3); Total Protein 7.5 g/dL (6.3-8.2)
[2024-11-07 11:02] LABS: Partial Thromboplastin Time 25.6 sec (22.0-30.0); Prothrombin Time 10.9 sec (10.0-12.5)
[2024-11-07] MEDS: AMIODARONE 360 MG in DEXTROSE 5% IN WATER 200 ML IV ONE (11:05)
[2024-11-07 11:06] LABS: NT-Pro-B-Type Natriuretic Pept 200 pg/mL
--- NOTE | 2024-11-07 11:44 | XR ---
EXAMINATION TYPE: XR chest 1V portable DATE OF EXAM: 11/07/2024 11:33 AM COMPARISON: 07/11/2023 CLINICAL INDICATION: Male, 63 years old with history of dysrhythmia, TECHNIQUE: XR chest 1V portable view(s) obtained. FINDINGS: The heart size is normal. The pulmonary vasculature is normal. The lungs are clear. IMPRESSION: 1. No acute pulmonary process. [facility], , 11/07/2024 11:42 AM
[2024-11-07] MEDS: LORazepam 2 MG/ML INJ IV STA ×2 (12:55→13:55)
--- NOTE | 2024-11-07 13:11 | ED ---
Arrhythmia/Palpitations HPI - General Chief Complaint: Arrhythmia/Palpitations Stated Complaint: tachycardia Time Seen by Provider: 11/07/24 10:25 Source: EMS Mode of arrival: EMS Limitations: no limitations - History of Present Illness Initial Comments: 63-year-old male with past medical history of alcohol abuse presents emergency department with chest pain and palpitations. Patient states it has been intermittently going on for the past [address] Jin in office today. Heart rate was high and therefore patient was transferred to the hospital for further evaluation. He denies any history of heart disease. Does admit to hypertension. No fevers. Patient denies alcohol use. States he last drink 1 week ago. No history of DVT or PE. No fevers, chills or cough. No other alleviating, precipitating or modifying factors - Related Data Home Medications Medication Instructions Recorded Confirmed Latanoprost [Latanoprost 0.005%] 1 drop BOTH EYES HS 07/11/23 11/07/24 Previous Rx's Medication Instructions Recorded Amiodarone [Cordarone] 200 mg PO DAILY #120 tab 11/08/24 Folic Acid 1 mg PO DAILY #30 tablet 11/08/24 Multivitamins, Thera [Multivitamin 1 tab PO DAILY #30 tablet 11/08/24 (formulary)] Thiamine [Vitamin B-1] 100 mg PO DAILY #30 tablet 11/08/24 Allergies Allergy/AdvReac Type Severity Reaction Status Date / Time No Known Allergies Allergy Verified 11/07/24 12:25 Review of Systems ROS Statement: Those systems with pertinent positive or pertinent negative responses have been documented in the HPI. ROS Other: All systems not noted in ROS Statement are negative. Past Medical History Past Medical History: Dialysis, Hypertension Additional Past Medical History / Comment(s): ETOH abuse. Dontates plasma 1-2 times per week History of Any Multi-Drug Resistant Organisms: None Reported Past Surgical History: No Surgical Hx Reported, Hernia Repair Past Anesthesia/Blood Transfusion Reactions: No Reported Reaction Past Psychological History: No Psychological Hx Reported Smoking Status: Current every day smoker Past Alcohol Use History: Abuse, Daily Past Drug Use History: None Reported - Past Family History Father Family Medical History: Prostate Disorder Additional Family Medical History / Comment(s): Alzheimer's Mother Additional Family Medical History / Comment(s): Pacemaker General Exam Limitations: no limitations General appearance: alert, in no apparent distress Head exam: Present: atraumatic, normocephalic, normal inspection Eye exam: Present: normal appearance, PERRL, EOMI. Absent: scleral icterus, conjunctival injection, periorbital swelling ENT exam: Present: normal exam, mucous membranes moist Neck exam: Present: normal inspection. Absent: tenderness, meningismus, l ymphadenopathy Respiratory exam: Present: normal lung sounds bilaterally. Absent: respiratory distress, wheezes, rales, rhonchi, stridor Cardiovascular Exam: Present: tachycardia, irregular rhythm, normal heart sounds. Absent: systolic murmur, diastolic murmur, rubs, gallop, clicks GI/Abdominal exam: Present: soft, normal bowel sounds. Absent: distended, tenderness, guarding, rebound, rigid Extremities exam: Present: normal inspection, full ROM, normal capillary refill. Absent: tenderness, pedal edema, joint swelling, calf tenderness Back exam: Present: normal inspection Neurological exam: Present: alert, oriented X3, CN II-XII intact Psychiatric exam: Present: normal affect, normal mood Skin exam: Present: warm, dry, intact, normal color. Absent: rash Course Vital Signs 11/07/24 11/07/24 11/07/24 10:21 10:28 10:30 Temperature 99.2 F Pulse Rate 170 H 197 H Pulse Rate [ 197 H Administrative Personal Assistant ] Respiratory 18 18 Rate Blood Pressure 102/82 100/86 O2 Sat by Pulse 96 86 L Oximetry 11/07/24 11/07/24 11/07/24 10:54 11:05 12:00 Temperature Pulse Rate 158 H 137 H 145 H Pulse Rate [ Administrative Personal Assistant ] Respiratory 18 18 20 Rate Blood Pressure 133/104 142/95 129/115 O2 Sat by Pulse 96 97 97 Oximetry 11/07/24 11/07/24 11/07/24 13:00 13:53 15:50 Temperature Pulse Rate 142 H 124 H 68 Pulse Rate [ Administrative Personal Assistant ] Respiratory 18 18 16 Rate Blood Pressure 154/103 112/91 136/80 O2 Sat by Pulse 96 96 98 Oximetry 11/07/24 11/08/24 11/08/24 19:23 02:20 06:00 Temperature Pulse Rate 68 62 75 Pulse Rate [ Administrative Personal Assistant ] Respiratory 16 18 20 Rate Blood Pressure 138/88 148/87 151/90 O2 Sat by Pulse 97 98 96 Oximetry 11/08/24 07:24 Temperature Pulse Rate 59 L Pulse Rate [ Administrative Personal Assistant ] Respiratory 16 Rate Blood Pressure 135/93 O2 Sat by Pulse 97 Oximetry Medical Decision Making - Medical Decision Making Was pt. sent in by a medical professional or institution (, PA, VENEER STACKER, urgent c are, hospital, or group home...) When possible be specific @ -Patient sent in by Dr. Jin Did you speak to anyone other than the patient for history (EMS, parent, family, police, friend...)? What history was obtained from this source @ -spoke with Dr. Jin for admission Did you review nursing and triage notes (agree or disagree)? Why? @ -I reviewed and agree with nursing and triage notes Were old charts reviewed (outside hosp., previous admission, EMS record, old EKG, old radiological studies, urgent care reports/EKG's, group home records)? Report findings @ -I reviewed previous visits to the hospital where the patient was admitted for alcohol withdrawal Differential Diagnosis (chest pain, altered mental status, abdominal pain women, abdominal pain men, vaginal bleeding, weakness, fever, dyspnea, syncope, headache, dizziness, GI bleed, back pain, seizure, CVA, palpatations, mental health, musculoskeletal)? @ -Differential Palpitations Ventricular arrhythmias, atrial arrhythmias, myocardial infarction, anemia, thyrotoxicosis, electrolyte imbalance, hypokalemia, pulmonary embolism, pulmonary disease, drugs, alcohol, anxiety, stress.... This is not meant to be an all-inclusive list. EKG interpreted by me (3pts min.). @ -Completed at 1022 demonstrates A-fib with rapid ventricular response. Rate of 183. QRS 78. QTc of 319. No acute ST segment elevations or depressions Repeat completed at 1040 as there is concern for nonsustained V. tach. Continues to demonstrate A-fib with a rate of 171. QRS 88. QTc of 375. There is a right bundle branch block giving a slight widened appearance to V1-V3. No identifiable V. tach Repeat completed at 1421 demonstrates sinus rhythm with a rate of 74. SD interval 175. QRS 88. QTc of 423. No acute ST segment elevations or depressions X-rays interpreted by me (1pt min.). @ -Yes which demonstrates no acute process CT interpreted by me (1pt min.). @ -Yes which demonstrates no PE U/S interpreted by me (1pt. min.). @ -None done What testing was considered but not performed or refused? (CT, X-rays, U/S, labs)? Why? @ -None What meds were considered but not given or refused? Why? @ -None Did you discuss the management of the patient with other professionals (professionals i.e. Dr., PA, VENEER STACKER, lab, RT, psych nurse, psychosocial rehabilitation counselor, 1st pressman, teacher, chief talent officer, skilled nursing case manager)? Give summary @ -Spoke with Dr. Pantoja for the admissionberg Was smoking cessation discussed for >3mins.? @ -No Was critical care preformed (if so, how long)? @ -Yes, 35 minutes for management of rapid A-fib with RVR Were there social determinants of health that impacted care today? How? (Homelessness, low income, unemployed, alcoholism, drug addiction, transportation, low edu. Level, literacy, decrease access to med. care, nursing home, rehab)? @ -No Was there de-escalation of care discussed even if they declined (Discuss DNR or withdrawal of care, Hospice)? DNR status @ -No What co-morbidities impacted this encounter? (DM, HTN, Smoking, COPD, CAD, Cancer, CVA, ARF, Chemo, Hep., AIDS, mental health diagnosis, sleep apnea, m orbid obesity)? @ -Alcohol abuse Was patient admitted / discharged? Hospital course, mention meds given and route, prescriptions, significant lab abnormalities, going to OR and other pertinent info. @ -Upon arrival patient seen and evaluated in trauma 2. Thorough history and physical exam was performed. IV access was established. Laboratory studies are conducted. Chest x-ray was performed. This is followed by a CT of the patient's chest to look for PE which is negative. Patient denies alcohol use however he does appear to be in withdrawal. His alcohol is 79. I did place him on CIWA protocol. He was placed on a Cardizem drip. I did speak with Dr. Barker for the admission. During his wait to obtain a bed on the floor the patient does convert to normal sinus rhythm. Repeat EKG performed which demonstrates sinus rhythm. Cardiology will be consulted. Undiagnosed new problem with uncertain prognosis? @ -No Drug Therapy requiring intensive monitoring for toxicity (Heparin, Nitro, Insulin, Cardizem)? @ -Cardizem Were any procedures done? @ -No Diagnosis/symptom? @ -New onset A-fib with RVR, acute alcohol withdrawal Acute, or Chronic, or Acute on Chronic? @ -Acute Uncomplicated (without systemic symptoms) or Complicated (systemic symptoms)? @ -Complicated Side effects of treatment? @ -Hypotension, bradycardia Exacerbation, Progression, or Severe Exacerbation? @ -No Poses a threat to life or bodily function? How? (Chest pain, USA, ME, pneumonia, PE, COPD, DKA, ARF, appy, cholecystitis, CVA, Diverticulitis, Homicidal, Suicidal, threat to staff... and all critical care pts) @ -Yes this patient does have significantly elevated heart rate - Lab Data Result diagrams: 11/08/24 08:34 11/08/24 08:34 Lab Results 11/07/24 11/07/24 11/07/24 Range/Units 10:31 10:31 10:31 WBC 11.2 H (3.8-10.6) k/uL RBC 4.94 (4.30-5.90) m/uL Hgb 15.3 (13.0-17.5) gm/dL Hct 47.5 (39.0-53.0) % MCV 96.2 (80.0-100.0) fL MCH 30.9 (25.0-35.0) pg MCHC 32.1 (31.0-37.0) g/dL RDW 15.0 (11.5-15.5) % Plt Count 185 (150-450) k/uL MPV 7.2 Neutrophils % 81 % Lymphocytes % 10 % Monocytes % 8 % Eosinophils % 1 % Basophils % 0 % Neutrophils # 9.1 H (1.3-7.7) k/uL Lymphocytes # 1.1 (1.0-4.8) k/uL Monocytes # 0.9 (0-1.0) k/uL Eosinophils # 0.1 (0-0.7) k/uL Basophils # 0.0 (0-0.2) k/uL PT 10.9 (10.0-12.5) sec INR 1.0 (<1.2) APTT 25.6 (22.0-30.0) sec D-Dimer 0.85 H (<0.60) mg/L FEU Sodium 141 (137-145) mmol/L Potassium 4.0 (3.5-5.1) mmol/L Chloride 106 (98-107) mmol/L Carbon Dioxide 21 L (22-30) mmol/L Anion Gap 14 mmol/L BUN 8 L (9-20) mg/dL Creatinine 0.69 (0.66-1.25) mg/dL Est GFR (CKD-EPI)AfAm >90 (>60 ml/min/1.73 sqM) Est GFR (CKD-EPI)NonAf >90 (>60 ml/min/1.73 sqM) Glucose 121 H (74-99) mg/dL Calcium 9.3 (8.4-10.2) mg/dL Magnesium 1.7 (1.6-2.3) mg/dL Total Bilirubin 0.9 (0.2-1.3) mg/dL AST 75 H (17-59) U/L ALT 42 (4-49) U/L Alkaline Phosphatase 154 H (38-126) U/L Troponin I (0.000-0.034) ng/mL NT-Pro-B Natriuret Pep 200 pg/mL Total Protein 7.5 (6.3-8.2) g/dL Albumin 4.6 (3.5-5.0) g/dL TSH 1.590 (0.465-4.680) mIU/L Serum Alcohol 78 mg/dL 11/07/24 Range/Units 10:31 WBC (3.8-10.6) k/uL RBC (4.30-5.90) m/uL Hgb (13.0-17.5) gm/dL Hct (39.0-53.0) % MCV (80.0-100.0) fL MCH (25.0-35.0) pg MCHC (31.0-37.0) g/dL RDW (11.5-15.5) % Plt Count (150-450) k/uL MPV Neutrophils % % Lymphocytes % % Monocytes % % Eosinophils % % Basophils % % Neutrophils # (1.3-7.7) k/uL Lymphocytes # (1.0-4.8) k/uL Monocytes # (0-1.0) k/uL Eosinophils # (0-0.7) k/uL Basophils # (0-0.2) k/uL PT (10.0-12.5) sec INR (<1.2) APTT (22.0-30.0) sec D-Dimer (<0.60) mg/L FEU Sodium (137-145) mmol/L Potassium (3.5-5.1) mmol/L Chloride (98-107) mmol/L Carbon Dioxide (22-30) mmol/L Anion Gap mmol/L BUN (9-20) mg/dL Creatinine (0.66-1.25) mg/dL Est GFR (CKD-EPI)AfAm (>60 ml/min/1.73 sqM) Est GFR (CKD-EPI)NonAf (>60 ml/min/1.73 sqM) Glucose (74-99) mg/dL Calcium (8.4-10.2) mg/dL Magnesium (1.6-2.3) mg/dL Total Bilirubin (0.2-1.3) mg/dL AST (17-59) U/L ALT (4-49) U/L Alkaline Phosphatase (38-126) U/L Troponin I <0.012 (0.000-0.034) ng/mL NT-Pro-B Natriuret Pep pg/mL Total Protein (6.3-8.2) g/dL Albumin (3.5-5.0) g/dL TSH (0.465-4.680) mIU/L Serum Alcohol mg/dL Disposition Clinical Impression: Alcohol withdrawal, Atrial fibrillation with RVR, Hypomagnesemia Disposition: ADMITTED IP TO THIS HOSP Condition: Stable Is patient prescribed a controlled substance at d/c from ED?: No Time of Disposition: 13:50 Decision to Admit Reason: Admit from EC Decision Date: 11/07/24 Decision Time: 13:50
[2024-11-07] MEDS ORDERED: LORazepam 2 MG/ML INJ IV PRN ×2 (13:24)
--- NOTE | 2024-11-07 13:41 | CT ---
EXAMINATION TYPE: CT chest angio for PE DATE OF EXAM: 11/07/2024 COMPARISON: CT chest abdomen and pelvis dated 07/11/2023. CLINICAL INDICATION: Male, 63 years old with history of chest pain, tachycardia, elevated d-dimer; PH H, chest pain, tachycardia, elevated d-dimer, SOB or PAIN TECHNIQUE: Ct angiogram of the chest performed with with IV Contrast, patient injected with 100 mL of Isovue 370 . MIP images are created and reviewed. CT DLP: 293.[address] CTDI: mGy Automated exposure control for dose reduction was used. FINDINGS: LUNGS: The lungs are grossly clear, there is no concerning parenchymal mass or nodule identified. T here is no pleural effusion or pneumothorax seen. The tracheobronchial tree is patent. MEDIASTINUM: There is satisfactory enhancement of the pulmonary artery and its branches, there is no CT evidence for pulmonary embolism. There are no greater than 1 cm hilar or mediastinal lymph nodes. No pericardial effusion is seen. OTHER: No additional significant abnormality is seen. IMPRESSION: 1. No evidence of pulmonary embolism. 2. No acute cardiopulmonary disease. Follow-up recommendations for incidental pulmonary nodules are per [employer] or [employer]. [facility], , 11/07/2024 1:39 PM
[2024-11-07] MEDS ORDERED: NALOXONE 0.4 MG/ML 1 ML VIAL IV PRN (13:50)
[2024-11-07] MEDS: SODIUM CHLORIDE 0.9% 1,000 ML IV SCH (13:54)
--- NOTE | 2024-11-07 15:17 | P.HPIM ---
History of Present Illness H&P Date: 11/07/24 Chief Complaint: Palpitation This is a 63-year-old gentleman past medical history significant for alcohol dependence/abuse, hypertension, nicotine dependence, and multiple other medical issues presented to the ER with complaints of nonradiating midsternal chest pressure, palpitations. States he drinks a large bottle of vodka on the weekends - his last drink was Monday.denies nausea or vomiting. Denies abdominal pain. Serum alcohol level 78. Diaphoretic, tremulous. denies fever or chills. Denies cough congestion. Denies prior history of cardiac disease, arrhythmias. EKG reported atrial fibrillation with RVR, ventricular rate 183. Tmax 99.2, WBC 11.2, hemoglobin 15.3, platelet 185, INR 1 D-dimer elevated 0.85. CTA reported no evidence of PE, no acute cardiopulmonary disease. Sodium 141, potassium 4, bicarb 21 BUN 8, creatinine 0.69, glucose 121, magnesium 1.7, T. bili 0.9, AST 75, ALT 42, alk phos 154. Troponin negative x 2. proBNP 200 TSH 1.590. CIWA score 7. Amiodarone drip initiated in the ER, telemetry currently reporting sinus rhythm. Review of Systems ROS Statement: Those systems with pertinent positive or pertinent negative responses have been documented in the HPI. ROS Other: All systems not noted in ROS Statement are negative. Past Medical History Past Medical History: Dialysis, Hypertension Additional Past Medical History / Comment(s): ETOH abuse. Dontates plasma 1-2 times per week History of Any Multi-Drug Resistant Organisms: None Reported Past Surgical History: No Surgical Hx Reported, Hernia Repair Past Anesthesia/Blood Transfusion Reactions: No Reported Reaction Past Psychological History: No Psychological Hx Reported Smoking Status: Current every day smoker Past Alcohol Use History: Abuse, Daily Past Drug Use History: None Reported - Past Family History Father Family Medical History: Prostate Disorder Additional Family Medical History / Comment(s): Alzheimer's Mother Additional Family Medical History / Comment(s): Pacemaker Medications and Allergies Home Medications Medication Instructions Recorded Confirmed Type Latanoprost [Latanoprost 0.005%] 1 drop BOTH EYES HS 07/11/23 11/07/24 History Allergies Allergy/AdvReac Type Severity Reaction Status Date / Time No Known Allergies Allergy Verified 11/07/24 12:25 Physical Exam Vitals: Vital Signs Temp Pulse Pulse Resp BP Pulse Ox 11/07/24 13:53 124 H 18 112/91 96 11/07/24 13:00 142 H 18 154/103 96 11/07/24 12:00 145 H 20 129/115 97 11/07/24 11:05 137 H 18 142/95 97 11/07/24 10:54 158 H 18 133/104 96 11/07/24 10:30 197 H 18 100/86 86 L 11/07/24 10:28 197 H 11/07/24 10:21 99.2 F 170 H 18 102/82 96 Intake and Output 11/06/24 11/07/24 11/07/24 22:59 06:59 14:59 Other: Weight 74.843 kg PHYSICAL EXAM: VITAL SIGNS: As above GENERAL: Diaphoretic, sitting up on stretcher, alert and oriented x 2, no acute distress HEENT: Conjunctivae normal. eyes normal. No scleral icterus. NECK: Supple, no JVD. No thyroid enlargement. No LNs CARDIOVASCULAR: S1, S2. Tachycardic, regular,no murmur RESPIRATION: Unlabored, equal air entry, breath sounds diminished in the bases. No rhonchi or crackles. No bronchial breathing. ABDOMEN: Soft, nontender . No guarding. no masses palpable. No ascites, No hepatosplenomegaly.Bowel sounds heard. LEGS: No edema. no swelling NERVOUS SYSTEM: Cranial nerves II through XII grossly intact. Tremulous/positive flap test. Skin: no rash , warm and dry Results CBC & Chem 7: 11/08/24 08:34 11/07/24 10:31 Labs: Abnormal Lab Results - Last 24 Hours (Table) 11/07/24 11/07/24 11/07/24 Range/Units 10:31 10:31 10:31 WBC 11.2 H (3.8-10.6) k/uL Neutrophils # 9.1 H (1.3-7.7) k/uL D-Dimer 0.85 H (<0.60) mg/L FEU Carbon Dioxide 21 L (22-30) mmol/L BUN 8 L (9-20) mg/dL Glucose 121 H (74-99) mg/dL AST 75 H (17-59) U/L Alkaline Phosphatase 154 H (38-126) U/L Assessment and Plan Assessment: A-fib with RVR Alcohol intoxication, DTs Acute hypoxic respiratory failure secondary to the above Acute metabolic encephalopathy secondary to the above Alcoholic hepatitis with elevated bilirubin and LFTs Thrombocytopenia Hypomagnesemia Nicotine dependence Plan: Continue on current medication regime ,monitoring and symptomatic treatment.antiarrhythmics,anticogulation as per cardiology. echo ordered . CIWA Protocol. IV fluid hydration. Electrolyte replacements. Home meds have been reviewed and resumed. Close monitoring of LFTs, electrolytes, coags, with repeat labs ordered for a.m. The impression and plan of care has been dictated as directed. : I performed a history and examination of this patient, discussed the same with the dictator. I agree with the dictator's note ,documented as a scribe. Any additional findings or plans will be noted.
[2024-11-07] MEDS: PANTOPRAZOLE 40 MG/10 ML VIAL IVP SCH (15:52)
[2024-11-07] MEDS: AMIODARONE 450 MG in DEXTROSE 5% IN WATER 250 ML IV SCH (16:46)
[2024-11-07 17:51] LABS: Glucose,Whole Blood 105 mg/dL (70-110)
[2024-11-07] MEDS: LORazepam 2 MG/ML INJ IV PRN (20:52)
[2024-11-07] MEDS: LATANOPROST 0.005% OPHTH DROPS 2.5 ML BTL BOTH EYES SCH (20:53)
[2024-11-08 08:49] LABS: Basophils % (A) 0 %; Eosinophils # (A) 0.1 k/uL (0-0.7); Eosinophils % (A) 1 %; HCT 44.4 % (39.0-53.0); HGB 14.4 gm/dL (13.0-17.5); Lymphocytes # (A) 1.2 k/uL (1.0-4.8); Lymphocytes % (A) 11 %; MCH 31.5 pg (25.0-35.0); MCHC 32.4 g/dL (31.0-37.0); MCV 97.2 fL (80.0-100.0); Mean Platelet Volume 8.5; Monocytes # (A) 0.7 k/uL (0-1.0); Monocytes % (A) 6 %; Neutrophils # (A) 9.2 k/uL (1.3-7.7); Neutrophils % (A) 82 %; Platelet Count 161 k/uL (150-450); RBC 4.57 m/uL (4.30-5.90); RDW 14.8 % (11.5-15.5); WBC 11.2 k/uL (3.8-10.6)
[2024-11-08 09:23] LABS: African American GFR (CKD) >90 (>60 ml/min/1.73 sqM); Anion Gap 7 mmol/L; Blood Urea Nitrogen 8 mg/dL (9-20); Calcium 8.6 mg/dL (8.4-10.2); Carbon Dioxide 25 mmol/L (22-30); Chloride 104 mmol/L (98-107); Glucose 106 mg/dL (74-99); Magnesium 1.7 mg/dL (1.6-2.3); Non-African American GFR(CKD) >90 (>60 ml/min/1.73 sqM); Potassium 3.6 mmol/L (3.5-5.1); Sodium 136 mmol/L (137-145)
[2024-11-08 10:35] VITALS: BP 141/81; PULSE 75; RESP 18; TEMP 98.3
--- NOTE | 2024-11-08 10:51 | P.CRDCN ---
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 He has a past medical history of alcohol abuse, tobacco use and dependence. We have been asked to evaluate patient for A-fib with RVR. Patient states that he came in for chest tightness and heart racing. He thinks it happens about 1 time per day every other day. His symptoms resolved when he converted yesterday. He has no chest pain at the time of this evaluation. Patient denies history of atrial fibrillation. He denies heart failure, HTN, DM, CVA or TIA. Blood pressure 135/93, heart rate 59, pulse ox 97% on room air. Patient is seen today in the emergency center waiting for a bed on the cardiac stepdown unit. Patient has been started on amiodarone drip per protocol, magnesium has been replaced and is status post 1 L of IV fluid bolus. He is a smoker of 1/3 pack per day. He sstates his last alchol intake was last Monday and does not drink alcohol every day. Discussed treatment options such as medications to keep him in sinus rhythm. Patient does not require anticoagulation at this time. Patient will need stress test which can be done in the office. -EKG: #1 atrial fibrillation heart rate 71 bpm, #2 atrial fibrillation at 183 bpm, #3 sinus rhythm at 74 bpm. -Chest x-ray: No acute process. -CTA of the chest revealed no evidence of pulmonary embolism. No acute cardiopulmonary disease. -Laboratory studies: WBC 11.2, hemoglobin 15.3. D-dimer 0.85. Sodium 141, potassium 4, BUN 8 and creatinine 0.69. Troponin negative x 3. Ammonia level less than 9. TSH 1.59. Serum alcohol 78. -Home cardiac medications: None Review Of Systems: At the time of my exam: CONSTITUTIONAL: Denies fever or chills. HEENT: Denies blurred vision, vision changes, or eye pain. Denies hemoptysis CARDIOVASCULAR: Denies chest pain. Denies orthopnea. Denies PND. Denies palpitations RESPIRATORY: Denies shortness of breath. GASTROINTESTINAL: Denies abdominal pain. Denies nausea or vomiting. HEMATOLOGIC: Denies bleeding disorders. GENITOURINARY: Denies any blood in urine. SKIN: Denies puritis. Denies rash. Physical examination: Gen: This is a 63-year-old male in no acute distress VS: reviewed HEENT: Head is atraumatic, normocephalic. Pupils equal, round. Sclerae is anicteric. NECK: Supple. No JVD. LUNGS: Clear to auscultation. No wheezes or rhonchi. No intercostal retractions. HEART: Regular rate and rhythm. No murmur. ABDOMEN: Soft No tenderness. EXTREMITIES: No pedal edema. No calf tenderness. NEUROLOGICAL: Patient is awake, alert and oriented x3. Assessment: New onset paroxysmal atrial fibrillation with RVR, converted to sinus rhythm History of alcohol abuse Tobacco use and dependence Plan: Patient is currently on amiodarone drip. Patient will be started on oral amiodarone 400 mg twice daily for 1 week then 200 mg twice daily for 1 week and then 200 mg daily. Prescription has been sent to his pharmacy. Obtain 2-D echocardiogram and Doppler study to assess cardiac structure and function Smoking cessation. Patient will be provided the [place] quit line information at discharge. Alcohol cessation Patient is cleared for discharge and may follow-up with Dr. Johnson in the office in 1 to 2 weeks. Thank you kindly for this consultation. Nurse practitioner note has been reviewed, I agree with documented findings and plan of care. Patient was seen and examined. Past Medical History Past Medical History: Dialysis, Hypertension Additional Past Medical History / Comment(s): ETOH abuse. Dontates plasma 1-2 times per week History of Any Multi-Drug Resistant Organisms: None Reported Past Surgical History: No Surgical Hx Reported, Hernia Repair Past Anesthesia/Blood Transfusion Reactions: No Reported Reaction Past Psychological History: No Psychological Hx Reported Smoking Status: Current every day smoker Past Alcohol Use History: Abuse, Daily Past Drug Use History: None Reported - Past Family History Father Family Medical History: Prostate Disorder Additional Family Medical History / Comment(s): Alzheimer's Mother Additional Family Medical History / Comment(s): Pacemaker Medications and Allergies Home Medications Medication Instructions Recorded Confirmed Type Latanoprost [Latanoprost 0.005%] 1 drop BOTH EYES HS 07/11/23 11/07/24 History Amiodarone [Cordarone] 200 mg PO DAILY #120 tab 11/08/24 Rx Allergies Allergy/AdvReac Type Severity Reaction Status Date / Time No Known Allergies Allergy Verified 11/07/24 12:25 Physical Exam Vitals: Vital Signs Temp Pulse Pulse Resp BP Pulse Ox 11/08/24 07:24 59 L 16 135/93 97 11/08/24 06:00 75 20 151/90 96 11/08/24 02:20 62 18 148/87 98 11/07/24 19:23 68 16 138/88 97 11/07/24 15:50 68 16 136/80 98 11/07/24 13:53 124 H 18 112/91 96 11/07/24 13:00 142 H 18 154/103 96 11/07/24 12:00 145 H 20 129/115 97 11/07/24 11:05 137 H 18 142/95 97 11/07/24 10:54 158 H 18 133/104 96 11/07/24 10:30 197 H 18 100/86 86 L 11/07/24 10:28 197 H 11/07/24 10:21 99.2 F 170 H 18 102/82 96 Results 11/08/24 08:34 11/08/24 08:34 Cardiac Enzymes 11/07/24 11/07/24 11/07/24 Range/Units 10:31 10:31 14:01 AST 75 H (17-59) U/L Troponin I <0.012 <0.012 (0.000-0.034) ng/mL 11/07/24 Range/Units 17:18 AST (17-59) U/L Troponin I <0.012 (0.000-0.034) ng/mL Coagulation 11/07/24 Range/Units 10:31 PT 10.9 (10.0-12.5) sec APTT 25.6 (22.0-30.0) sec CBC 11/07/24 Range/Units 10:31 WBC 11.2 H (3.8-10.6) k/uL RBC 4.94 (4.30-5.90) m/uL Hgb 15.3 (13.0-17.5) gm/dL Hct 47.5 (39.0-53.0) % Plt Count 185 (150-450) k/uL Comprehensive Metabolic Panel 11/07/24 Range/Units 10:31 Sodium 141 (137-145) mmol/L Potassium 4.0 (3.5-5.1) mmol/L Chloride 106 (98-107) mmol/L Carbon Dioxide 21 L (22-30) mmol/L BUN 8 L (9-20) mg/dL Creatinine 0.69 (0.66-1.25) mg/dL Glucose 121 H (74-99) mg/dL Calcium 9.3 (8.4-10.2) mg/dL AST 75 H (17-59) U/L ALT 42 (4-49) U/L Alkaline Phosphatase 154 H (38-126) U/L Total Protein 7.5 (6.3-8.2) g/dL Albumin 4.6 (3.5-5.0) g/dL Current Medications Generic Name Dose Route Start Last Admin Trade Name Freq PRN Reason Stop Dose Admin Amiodarone HCl 450 mg/ 250 mls @ 16.667 mls/hr 11/07/24 16:32 11/07/24 16:46 Dextrose/Water IV 11/08/24 10:31 0.5 mg/min .Q15H HIREN 16.667 mls/hr Administration Protocol 0.5 MG/MIN Sodium Chloride 1,000 mls @ 130 mls/hr 11/07/24 13:15 11/08/24 06:45 Saline 0.9% IV 130 mls/hr .Q7H42M HIREN Administration Latanoprost 1 drops 11/07/24 21:00 11/07/24 20:53 Latanoprost 0.005% Ophth Drops 2.5 Ml Btl BOTH EYES 1 drops HS HIREN Administration Lorazepam 1 mg 11/07/24 13:24 Lorazepam 2 Mg/Ml Inj IV Q1HR PRN CIWA 10 to 15 Lorazepam 1 mg 11/07/24 13:24 11/07/24 20:52 Lorazepam 2 Mg/Ml Inj IV 1 mg Q2HR PRN Administration CIWA 8 or 9 Lorazepam 2 mg 11/07/24 13:24 Lorazepam 2 Mg/Ml Inj IV 11/09/24 13:24 Q10M PRN CIWA 16 or higher Naloxone HCl 0.2 mg 11/07/24 13:50 Naloxone 0.4 Mg/Ml 1 Ml Vial IV Q2M PRN Opioid Reversal Pantoprazole Sodium 40 mg 11/07/24 14:45 11/07/24 15:52 Pantoprazole 40 Mg/10 Ml Vial IVP 40 mg DAILY HIREN Administration 11/07/24 10:31 11/07/24 10:31
[2024-11-08 11:57] LABS: Glucose,Whole Blood 109 mg/dL (70-110)
[2024-11-08] MEDS: POTASSIUM CHLORIDE ER 20 MEQ TAB.ER PO STA (12:12)
[2024-11-08] MEDS: FOLIC ACID 1 MG TAB PO SCH (12:12)
[2024-11-08] MEDS: THIAMINE 100 MG TAB PO SCH (12:12)
[2024-11-08] MEDS: AMIODARONE 200 MG TAB PO SCH (12:12)
[2024-11-08] MEDS: MAGNESIUM SULFATE-D5W PMX 1 GM in DEXTROSE/WATER 1 100ML.BAG IVPB ONE (12:13)
--- NOTE | 2024-11-08 12:23 | P.DS ---
Providers Date of admission: 11/07/24 13:50 Expected date of discharge: 11/08/24 Attending physician: Jovanny Barker Consults: 11/07/24 13:50 Consult Physician Urgent Consulting Provider: [facility] Consult Reason/Comments: afib with rvr, hx etoh abuse Do you want consulting provider notified?: Yes Primary care physician: [facility] Course: Final Diagnoses: A-fib with RVR, paroxysmal, new onset, converted to sinus rhythm. Alcohol intoxication, DTs Acute hypoxic respiratory failure secondary to the above Acute metabolic encephalopathy secondary to the above Alcoholic hepatitis with elevated bilirubin and LFTs Thrombocytopenia Hypomagnesemia Nicotine dependence Hospital course:This is a 63-year-old gentleman past medical history significant for alcohol dependence/abuse, hypertension, nicotine dependence, and multiple other medical issues presented to the ER with complaints of nonradiating midsternal chest pressure, palpitations. States he drinks a large bottle of vodka on the weekends - his last drink was Monday.denies nausea or vomiting. Denies abdominal pain. Serum alcohol level 78. Diaphoretic, tremulous. denies fever or chills. Denies cough congestion. Denies prior history of cardiac disease, arrhythmias. EKG reported atrial fibrillation with RVR, ventricular rate 183. Tmax 99.2, WBC 11.2, hemoglobin 15.3, platelet 185, INR 1 D-dimer elevated 0.85. CTA reported no evidence of PE, no acute cardiopulmonary disease. Sodium 141, potassium 4, bicarb 21 BUN 8, creatinine 0.69, glucose 121, magnesium 1.7, T. bili 0.9, AST 75, ALT 42, alk phos 154. Troponin negative x 2. proBNP 200 TSH 1.590. CIWA score 7. Amiodarone drip initiated in the ER, telemetry currently reporting sinus rhythm. antiarrhythmics,anticogulation as per cardiology. echo ordered . CIWA Protocol. IV fluid hydration. Electrolyte replacements. Home meds have been reviewed and resumed. Close monitoring of LFTs, electrolytes, coags, with repeat labs ordered for a.m. Maintained on amiodarone, converted to sinus rhythm. Echo completed, verbal report of normal EF. At this time patient does not require anticoagulation per cardiology. cleared by cardiology for discharge on amiodarone, outpatient follow-up with outpatient stress test. Denies chest pain, palpitations or shortness of breath. Recent CIWA score 10. Patient will be discharged home today in a stable condition with guarded prognosis pending CIWA score 5 or less. Alcohol abstinence and smoking cessation reinforced. The impression and plan of care has been dictated as directed. : I performed a history and examination of this patient, discussed the same with the dictator. I agree with the dictator's note ,documented as a scribe. Any additional findings or plans will be noted. Patient Condition at Discharge: Stable Plan - Discharge Summary Discharge Rx Participant: No New Discharge Prescriptions: New Thiamine [Vitamin B-1] 100 mg PO DAILY #30 tablet Amiodarone [Cordarone] 200 mg PO DAILY #120 tab Folic Acid 1 mg PO DAILY #30 tablet Multivitamins, Thera [Multivitamin (formulary)] 1 tab PO DAILY #30 tablet Continue Latanoprost [Latanoprost 0.005%] 1 drop BOTH EYES HS Discharge Medication List Latanoprost [Latanoprost 0.005%] 1 drop BOTH EYES HS 07/11/23 [History] Amiodarone [Cordarone] 200 mg PO DAILY #120 tab 11/08/24 [Rx] Folic Acid 1 mg PO DAILY #30 tablet 11/08/24 [Rx] Multivitamins, Thera [Multivitamin (formulary)] 1 tab PO DAILY #30 tablet 11/08/24 [Rx] Thiamine [Vitamin B-1] 100 mg PO DAILY #30 tablet 11/08/24 [Rx] Follow up Appointment(s)/Referral(s): Jacob Jin Jr, DO [Primary Care Provider] - 1 Week (Office to call with appointment date and time.) Gonzalo Johnson DO [STAFF PHYSICIAN] - 2 Weeks Discharge/Stand Alone Forms: [facility], Who Do I Call?, Outpatient Counseling, In Substance Abuse Facilities, Personal [employer]
--- NOTE | 2024-11-08 12:56 | CA ---
Transthoracic Echo Report Name: Robin Rogers Age: 63 Gender: M : 1960 Exam Date: 11/08/2024 10:27 Exam Location: [place] [facility] Ht (in): 70 Wt (lb): 165 Ordering Physician: Amy Veras Attending/Referring Phys: [facility] Garces RDCS Procedure CPT: Indications: lv fx Cardiac Hx: Alcohol Abuse. Technical Quality: Fair Contrast 1: Total Dose (mL): Contrast 2: Total Dose (mL): MEASUREMENTS (Male / Female) Normal Values 2D ECHO LV Diastolic Diameter PLAX 4.0 cm 4.2 - 5.9 / 3.9 - 5.3 cm LV Systolic Diameter PLAX 1.9 cm IVS Diastolic Thickness 1.5 cm 0.6 - 1.0 / 0.6 - 0.9 cm LVPW Diastolic Thickness 1.3 cm 0.6 - 1.0 / 0.6 - 0.9 cm LV Relative Wall Thickness 0.7 RV Internal Dim ED PLAX 2.5 cm LA Systolic Diameter LX 3.1 cm 3.0 - 4.0 / 2.7 - 3.8 cm LV Diastolic Volume MOD BP 46.0 cm??? 67 - 155 / 56 - 104 cm??? LV Systolic Volume MOD BP 14.0 cm??? 22 - 58 / 19 - 49 cm??? LV Ejection Fraction MOD BP 69.6 % >= 55 % LV Cardiac Index MOD BP 1195.3 cm???/min???m??? LV Diastolic Volume MOD 4C 50.1 cm??? LV Systolic Volume MOD 4C 13.6 cm??? LV Ejection Fraction MOD 4C 72.8 % LV Cardiac Index MOD 4C 1363.0 cm???/min???m??? LV Diastolic Length 4C 6.9 cm LV Systolic Length 4C 5.5 cm LV Diastolic Volume MOD 2C 40.1 cm??? LV Systolic Volume MOD 2C 13.3 cm??? LV Ejection Fraction MOD 2C 66.9 % LV Cardiac Index MOD 2C 1002.1 cm???/min???m??? LV Diastolic Length 2C 6.5 cm LV Systolic Length 2C 6.0 cm LA Volume 31.7 cm??? 18 - 58 / 22 - 52 cm??? LA Volume Index 16.4 cm???/m??? 16 - 28 cm???/m??? M-MODE Aortic Root Diameter MM 3.0 cm LA Systolic Diameter MM 2.9 cm LA Ao Ratio MM 1.0 AV Cusp Separation MM 1.7 cm DOPPLER MV Area PHT 3.9 cm??? Mitral E Point Velocity 62.6 cm/s Mitral A Point Velocity 98.7 cm/s Mitral E to A Ratio 0.6 MV Deceleration Time 194.1 ms TR Peak Velocity 203.8 cm/s TR Peak Gradient 16.6 mmHg FINDINGS Left Ventricle Left ventricular ejection fraction is estimated at 55-60%. Moderately increased septal wall thickness. Normal left ventricular systolic function with no obvious regional wall motion abnormalities. Right Ventricle Normal right ventricular size and function. Right ventricular systolic pressure within normal limits. Right Atrium Normal right atrial size. Left Atrium Normal left atrial size. Mitral Valve Structurally normal mitral valve. Mild mitral regurgitation. No mitral stenosis. Aortic Valve Trileaflet aortic valve. No aortic stenosis. Trace aortic regurgitation. Tricuspid Valve Structurally normal tricuspid valve. Mild tricuspid regurgitation. No tricuspid stenosis. Pulmonic Valve Structurally normal pulmonic valve. Trace pulmonic regurgitation. No pulmonic stenosis. Pericardium No pericardial or pleural effusion. Aorta Normal size aortic root and proximal ascending aorta. CONCLUSIONS LVEF 55% No obvious regional wall motion abnormality Moderate septal hypertrophy Mild mitral regurgitation Mild tricuspid regurgitation Normal RV size and systolic function Previewed by: Dr Gerber Marks (Electronically Signed) Final Date: 08 November 2024 12:55
== END 2024-11-08 14:38 | disposition home or self-care (01) ==
LOC: EC 10:17 → 3SCARD 13:50 → INTOOBSV 13:50 → 3SCARD 15:55
PROVIDERS: ADMIT Family Medicine; ATTEND Family Medicine
DX: I48.0 Paroxysmal atrial fibrillation (principal); F10.231 Alcohol dependence with withdrawal delirium; J96.01 Acute respiratory failure with hypoxia; G93.41 Metabolic encephalopathy; K70.10 Alcoholic hepatitis without ascites; D69.6 Thrombocytopenia, unspecified; E83.42 Hypomagnesemia; I10 Essential (primary) hypertension; F17.200 Nicotine dependence, unspecified, uncomplicated; Y90.3 Blood alcohol level of 60-79 mg/100 ml; Z79.899 Other long term (current) drug therapy
CPT/HCPCS: 96376 ×2; 96366 ×3; 96365; 96367; 96375; 99285; 36415; 93005; 93306; 85379; 83880; 80053; 80048; 84443; 82140; 83735 ×2; 84484; 85025 ×2; 85610; 85730; 80320; 71045; 71275; G0378 ×2; J2060 ×2; J0282 ×3; J3475 ×2; Q9967; J2470 ×2